=== PATIENT | female | born 2000 | race Caucasian/White ===

== ENCOUNTER 2021-12-09 20:55 | Emergency (ER) | payer MEDICAID ==
--- NOTE | 2021-12-09 21:17 | ERPHSYRPT ---
- History of Present Illness Time Seen by Provider: 12/09/21 21:15 Source: patient Exam Limitations: no limitations Patient Subjective Stated Complaint: pt states she has had tooth pain on left side of mouth in molar Triage Nursing Assessment: pt is alert and oriented, pt vitals are within normal limits, no fever at this time, rates pain in left side of mouth at 7/10. pt has lost a peice of the molar on left side of moth, gum surrounding tooth is red and swollen. Physician History: The patient is a 21-year-old female who reported is otherwise healthy presents with a chief complaint of a toothache. Onset reportedly was 2 weeks ago. She apparently complained that she may have cracked a tooth and then shortly afterwards started to experience pain that is constant nonradiating mild. She has been taking ibuprofen and Tylenol for the pain She denies any trismus, fever, chills, facial swelling, difficulty swallowing or any changes in her voice. She does not follow with a dentist currently. She apparently had caps or crowns put on her teeth, specifically to lower teeth years ago at Allergies/Adverse Reactions: codeine Allergy (Verified 09/13/21 12:31) Shortness of Breath SOB Hx Tetanus, Diphtheria Vaccination/Date Given: Yes Hx Influenza Vaccination/Date Given: No Hx Pneumococcal Vaccination/Date Given: No Travel Risk - International Travel Have you traveled outside of the country in past 3 weeks: No - Coronavirus Screening Are you exhibiting any of the following symptoms?: No Close contact with a COVID-19 positive Pt in past 14-21 Days: No - Vaccine Status Have you recieved a Covid-19 vaccination: No - Review of Systems Constitutional: No Fever, No Chills Ears, Nose, & Throat: Other (Toothache), No Ear Pain, No Mouth Pain, No Loose Teeth, No Painful Swallowing Cardiac: No Symptoms Abdominal/Gastrointestinal: No Symptoms Musculoskeletal: No Symptoms Skin: No Symptoms Neurological: No Headache Psychological: No Symptoms All Other Systems: Reviewed and Negative - Past Medical History Pertinent Past Medical History: No Neurological History: No Pertinent History ENT History: No Pertinent History Cardiac History: No Pertinent History Respiratory History: No Pertinent History Endocrine Medical History: No Pertinent History GI Medical History: No Pertinent History History: No Pertinent History Psycho-Social History: Depression Female Reproductive Disorders: Other - Past Surgical History Past Surgical History: Yes Neuro Surgical History: No Pertinent History Cardiac: No Pertinent History Respiratory: No Pertinent History Gastrointestinal: No Pertinent History Genitourinary: No Pertinent History Musculoskeletal: No Pertinent History Female Surgical History: No Pertinent History Other Surgical History: TONSILECTOMY - Social History Smoking Status: Current every day smoker How long have you smoked: YR Exposure to second hand smoke: Yes Drug Use: marijuana Patient Lives Alone: No - Female History Hx Last Menstrual Period: 11/07/21 Hx Now: (unknown) - Nursing Vital Signs Nursing Vital Signs: Initial Vital Signs Respiratory Rate 18 12/09/21 20:59 Blood Pressure 140/94 12/09/21 20:59 O2 Sat by Pulse Oximetry 98 12/09/21 20:59 Pain Scale Pain Intensity 5 - Physical Exam General Appearance: no apparent distress, alert Eye Exam: PERRL/EOMI, No scleral icterus ENT Exam: TMs normal, pharynx normal, airway intact, No nasal congestion, No p haryngeal erythema, No tonsillar exudate, No trismus, No muffled/hoarse voice Neck Exam: normal inspection, non-tender, supple, trachea midline Respiratory Exam: normal breath sounds, lungs clear, no respiratory distress Cardiovascular/Chest Exam: normal heart sounds, regular rate/rhythm, normal peripheral pulses, No murmur, No edema Neurologic Exam: alert, oriented x 3, cooperative Skin Exam: normal color, warm, dry Lymphatic: other SpO2: 98 Comments: The patient in no obvious periodontal swelling or abscess. The patient had tenderness upon palpation/tapping #13. For the most part, the tooth appear to be intact. These sublingual floor was supple there is no evidence of Dangelo's. There is no evidence of SHOULDER BONER. There is no evidence of facial swelling/cellulitis. - Course Nursing assessment & vital signs reviewed: Yes Ordered Tests: Active Orders 24 hr Category Date Time Status Re-Check Vital Signs STAT Care 12/09/21 21:53 Completed Medication Summary Discontinued Medications Generic Name Dose Route Start Last Admin Trade Name Courtney PRN Reason Stop Dose Admin Ibuprofen 400 mg 12/09/21 21:46 12/09/21 22:02 Ibuprofen 400 Mg Tablet PO 12/09/21 21:47 400 mg STAT ONE Administration Ibuprofen Confirm 12/09/21 21:52 Ibuprofen 400 Mg Tablet Administered 12/09/21 21:53 Dose 400 mg .ROUTE .STK-MED ONE Penicillin V Potassium 500 mg 12/09/21 21:46 12/09/21 22:02 Penicillin V Potassium 250 Mg Tablet PO 12/09/21 21:47 500 mg STAT ONE Administration Penicillin V Potassium Confirm 12/09/21 21:52 Penicillin V Potassium 250 Mg Tablet Administered 12/09/21 21:53 Dose 500 mg .ROUTE .STK-MED ONE - Progress Progress: unchanged Progress Note: 12/09/21 22:00 I was unable to pull up the patient on inspect. I suspect the patient may have given us the wrong demographics and registration asked for identification from the patient to confirm her ID however she did not have any formal identification on her person. Because of this, I will not prescribe any controlled substances and recommend that she take Tylenol in addition to ibuprofen as needed for pain. 12/10/21 03:52 Nontoxic in appearance. The patient presents with a 2 think he may be suffering from pulpitis or sensitivity given she reportedly "cracked" her tooth. It certainly possible there could be a periapical abscess as well. I will prescribe penicillin V and instructed to take Tylenol as well as ibuprofen as needed for pain. She was given a dental referral handout as well and instructed to establish care with a dentist for further evaluation and management. Counseled pt/family regarding: diagnosis, need for follow-up - Departure Departure Disposition: Home Clinical Impression: Pain, dental Condition: Stable Critical Care Time: No Referrals: DOCTOR,NO FAMILY [Primary Care Provider] - Follow up/PCP as directed Prescriptions: Penicillin V Potassium 500 mg PO QID 7 Days #28 tablet Penicillin V Potassium 500 mg PO QID #28 tablet
[2021-12-09] MEDS ORDERED: PENICILLIN V POTASSIUM PO ONE (21:46)
[2021-12-09] MEDS ORDERED: MOTRIN 400 MG PO ONE (21:46)
[2021-12-09] MEDS ORDERED: MOTRIN 400 MG ONE (21:52)
[2021-12-09] MEDS ORDERED: PENICILLIN V POTASSIUM ONE (21:52)
[2021-12-09 22:22] VITALS: BP 139/98; PULSE 97
[2021-12-10 03:52] VITALS: O2SAT 98
== END 2021-12-09 22:23 | disposition home or self-care (01) ==
LOC: ED 20:55
DX: K08.89 Other specified disorders of teeth and supporting structures (principal); Z72.0 Tobacco use; Z28.310 Unvaccinated for COVID-19
CPT/HCPCS: 99282; A9270-GY

== ENCOUNTER 2022-01-08 15:37 | Emergency (ER) | payer MEDICAID ==
[2022-01-08 16:03] VITALS: BP 120/84; PULSE 109; O2SAT 98
--- NOTE | 2022-01-08 16:29 | ERPHSYRPT ---
- History of Present Illness Source: patient Exam Limitations: no limitations Patient Subjective Stated Complaint: pt c/o of an abcess in her mouth on the top left side, pt continues to get antibiotics and doesn't go to the dentist to get it fixed per her mother Triage Nursing Assessment: Pt brought to the ER by her parents, vitals wnl, rates pain as 10/10, appears to be in significant pain, no other issues at this time Physician History: 21 yo wf w dental pain x 1wk. Pt has visited the ER in the past for the same condition but did not f/u w a dentist. She has moderate pain and states mild edema of gums. Timing/Duration: gradual onset ENT Location: dental Prearrival Treatment: over the counter meds Modifying Factors: Improves With: other (Chewing). Worsens With: activity, nothing, albuterol inhaler, albuterol nebulizer, coughing, deep breath, exertion, lying down, oxygen, rest Associated Symptoms: facial pain/swelling, jaw pain, tooth pain, No ear pain (R), No ear pain (L), No cough, No fever, No chills, No change in hearing, No dizziness, No drooling, No ear drainage, No headache, No hearing loss, No m alaise, No motion sickness, No nasal congestion/drainage, No epistaxis, No nasal foreign body, No neck pain, No poor fluid intake, No poor solids intake, No ringing of ears, No swollen glands, No sinus infection, No sore throat, No difficulty swallowing, No voice change Allergies/Adverse Reactions: codeine Allergy (Verified 01/08/22 16:03) Shortness of Breath SOB Hx Tetanus, Diphtheria Vaccination/Date Given: Yes Hx Influenza Vaccination/Date Given: No Hx Pneumococcal Vaccination/Date Given: No Travel Risk - International Travel Have you traveled outside of the country in past 3 weeks: No - Coronavirus Screening Are you exhibiting any of the following symptoms?: No Close contact with a COVID-19 positive Pt in past 14-21 Days: No - Vaccine Status Have you recieved a Covid-19 vaccination: No - Review of Systems Constitutional: No Symptoms Eyes: No Symptoms Ears, Nose, & Throat: No Symptoms, Mouth Pain Respiratory: No Symptoms Cardiac: No Symptoms Abdominal/Gastrointestinal: No Symptoms Genitourinary Symptoms: No Symptoms Musculoskeletal: No Symptoms Skin: No Symptoms Neurological: No Symptoms Psychological: No Symptoms Endocrine: No Symptoms Hematologic/Lymphatic: No Symptoms Immunological/Allergic: No Symptoms - Past Medical History Pertinent Past Medical History: Yes Neurological History: No Pertinent History ENT History: No Pertinent History Cardiac History: No Pertinent History Respiratory History: No Pertinent History Endocrine Medical History: No Pertinent History GI Medical History: No Pertinent History History: No Pertinent History Psycho-Social History: Depression Female Reproductive Disorders: Other - Past Surgical History Past Surgical History: Yes Neuro Surgical History: No Pertinent History Cardiac: No Pertinent History Respiratory: No Pertinent History Gastrointestinal: No Pertinent History Genitourinary: No Pertinent History Musculoskeletal: No Pertinent History Female Surgical History: No Pertinent History Other Surgical History: TONSILECTOMY - Social History Smoking Status: Current every day smoker How long have you smoked: YR Exposure to second hand smoke: Yes Drug Use: marijuana Patient Lives Alone: No Significant Family History: no pertinent family hx - Female History Hx Now: No (unsure) - Nursing Vital Signs Nursing Vital Signs: Initial Vital Signs Temperature 97.0 F 01/08/22 15:55 Pulse Rate 109 H 01/08/22 15:55 Blood Pressure 120/84 01/08/22 15:55 O2 Sat by Pulse Oximetry 98 01/08/22 15:55 Pain Scale Pain Intensity 10 Mildly tachy - Physical Exam General Appearance: no apparent distress Eye Exam: bilateral eye: normal inspection, PERRL, EOMI Ear Exam: bilateral ear: auricle normal, canal normal, TM normal Nasal Exam: normal inspection Throat Exam: dental tenderness (L superior 2nd molar TTP), No excessive drooling, No mandibular swelling, No maxillary swelling, No moist mucus membranes, No pharynx swelling, No pharynx tenderness, No tongue swollen, No tonsillar exudate, No tonsillar swelling, No trismus, No uvula swelling, No voice changes Neck Exam: normal inspection, non-tender, supple, full range of motion, trachea midline, No JVD Cardiovascular/Respiratory Exam: normal breath sounds, regular rate/rhythm, heart sounds normal Abdominal Exam: non-tender, soft Neurologic Exam: alert, oriented x 3, cooperative, 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, normal mood/affect, nml cerebellar function, nml station & gait, sensation nml Skin Exam: normal color SpO2 Interpretation: normal SpO2: 98 O2 Delivery: Room Air - Course Nursing assessment & vital signs reviewed: Yes - Progress Progress Note: 01/08/22 16:28 Pt refused IM Toradol due to fear of injections Counseled pt/family regarding: diagnosis, need for follow-up - Departure Departure Disposition: Home Clinical Impression: Chronic dental pain Condition: Stable Critical Care Time: No Referrals: DOCTOR,NO FAMILY [Primary Care Provider] - Follow up/PCP as directed Instructions: Tooth Abscess (DC), Dental Pain (DC), Dental Pain Additional Instructions: Dentist KERON Prescriptions: Etodolac 400 mg [Lodine 400 mg] 400 mg PO TID PRN PRN #15 tablet PRN Reason: Pain Penicillin V Potassium 500 mg PO TID 7 Days #21 tablet
== END 2022-01-08 16:44 | disposition home or self-care (01) ==
LOC: ED 15:37
DX: K08.89 Other specified disorders of teeth and supporting structures (principal); G89.29 Other chronic pain; Z72.0 Tobacco use; Z28.310 Unvaccinated for COVID-19
CPT/HCPCS: 99281

== ENCOUNTER 2022-01-25 00:32 | Emergency (ER) | payer MEDICAID ==
[2022-01-25 00:52] VITALS: BP 146/89; PULSE 112; O2SAT 97
[2022-01-25] MEDS ORDERED: TORAdol 30 mg Injection IM ONE (00:57)
[2022-01-25] MEDS ORDERED: TYLENOL 325 MG PO ONE (00:59)
[2022-01-25] MEDS ORDERED: Augmentin 875-125 Tablet PO ONE (01:00)
[2022-01-25] MEDS ORDERED: TORAdol 30 mg Injection ONE (01:03)
[2022-01-25] MEDS ORDERED: Augmentin 875-125 Tablet ONE (01:03)
[2022-01-25] MEDS ORDERED: TYLENOL 325 MG ONE (01:03)
--- NOTE | 2022-01-25 01:07 | ERPHSYRPT ---
- History of Present Illness Time Seen by Provider: 01/25/22 01:04 Exam Limitations: no limitations Patient Subjective Stated Complaint: pt states "I am supposed to go to the dentist tomorrow to possible get my teeth pulled cause I have a bad tooth bu I cannot stand the pain anymore." Triage Nursing Assessment: pt ambulatory to bed by self, pt alert and oriented x3, pt here in ED with mother, pt crying in triage, pt c/o L lower and upper dental pain, pt has some decaying teeth on the L lower side, pt has a dentist appointment tomorrow in [place], pt last taken 400 mg of motrin at 2100 Physician History: Is a 21-year-old female presents to our ED with 2 days of dental pain. Patient currently has a dental appointment scheduled for tomorrow but is here because of the pain was unbearable. Patient had been taking 400 mg of ibuprofen for pain control. Of note this is underdosed based on her body weight. Patient states the pain radiates up to her ear. No fever. No dizziness. No hard of hearing. Patient complains of dental pain particularly at tooth #14 and tooth #18. Pain described as an ache that tends to radiate towards her ear. No trauma. No fever. Symptoms are moderate in intensity. Mastication reproduces symptoms. No difficulty swallowing. No oral swelling. No cervical lymphadenopathy. Patient is otherwise healthy. She voices no other complaints or concerns at this time. Timing/Duration: yesterday Severity: moderate Modifying Factors: Improves With: other (400 mg of ibuprofen was not improving patient's symptoms. Pain worsens with mastication percussion to teeth.) Associated Symptoms: denies symptoms Allergies/Adverse Reactions: No Known Drug Allergies Allergy (Unverified 01/25/22 00:44) Hx Tetanus, Diphtheria Vaccination/Date Given: No Hx Influenza Vaccination/Date Given: Yes Hx Pneumococcal Vaccination/Date Given: No Immunizations Up to Date: Yes Travel Risk - International Travel Have you traveled outside of the country in past 3 weeks: No - Coronavirus Screening Are you exhibiting any of the following symptoms?: No Close contact with a COVID-19 positive Pt in past 14-21 Days: No - Vaccine Status Have you recieved a Covid-19 vaccination: No - Review of Systems Constitutional: No Symptoms, No Fever, No Chills Eyes: No Symptoms Ears, Nose, & Throat: No Symptoms Respiratory: No Symptoms, No Cough, No Dyspnea Cardiac: No Symptoms, No Chest Pain, No Edema, No Syncope Abdominal/Gastrointestinal: No Symptoms, No Abdominal Pain, No Nausea, No Vomiting, No Diarrhea Genitourinary Symptoms: No Symptoms, No Dysuria Musculoskeletal: No Symptoms, No Back Pain, No Neck Pain Skin: No Symptoms, No Rash Neurological: No Symptoms, No Dizziness, No Focal Weakness, No Sensory Changes Psychological: No Symptoms Endocrine: No Symptoms Hematologic/Lymphatic: No Symptoms Immunological/Allergic: No Symptoms All Other Systems: Reviewed and Negative - Past Medical History Pertinent Past Medical History: Yes Neurological History: No Pertinent History ENT History: No Pertinent History Cardiac History: No Pertinent History Respiratory History: No Pertinent History Endocrine Medical History: No Pertinent History Musculoskeletal History: No Pertinent History GI Medical History: No Pertinent History History: No Pertinent History Psycho-Social History: Depression Female Reproductive Disorders: Other - Past Surgical History Past Surgical History: Yes Neuro Surgical History: No Pertinent History Cardiac: No Pertinent History Respiratory: No Pertinent History Gastrointestinal: No Pertinent History Genitourinary: No Pertinent History Musculoskeletal: No Pertinent History Female Surgical History: No Pertinent History Other Surgical History: TONSILECTOMY - Social History Smoking Status: Former smoker How long have you smoked: YR Exposure to second hand smoke: Yes Drug Use: marijuana Patient Lives Alone: No Significant Family History: no pertinent family hx - Female History Hx Last Menstrual Period: 01/18/2022 Hx Now: No - Nursing Vital Signs Nursing Vital Signs: Initial Vital Signs Temperature 98.9 F 01/25/22 00:44 Pulse Rate 112 H 01/25/22 00:44 Respiratory Rate 18 01/25/22 00:44 Blood Pressure 146/89 01/25/22 00:44 O2 Sat by Pulse Oximetry 97 01/25/22 00:44 Pain Scale Pain Intensity 10 - Physical Exam General Appearance: no apparent distress, alert Eye Exam: PERRL/EOMI, eyes nml inspection Ears, Nose, Throat Exam: normal ENT inspection, TMs normal, pharynx normal, moist mucous membranes, other (Left ear otitis media tooth 14 is tender to percussion. Tooth 18 is carious. Early dental abscess) Neck Exam: normal inspection, non-tender, supple, full range of motion Respiratory Exam: normal breath sounds, lungs clear, airway intact, No respiratory distress Cardiovascular Exam: regular rate/rhythm, normal heart sounds, normal peripheral pulses Gastrointestinal/Abdomen Exam: soft, normal bowel sounds, No tenderness, No mass Back Exam: normal inspection, normal range of motion, No CVA tenderness, No vertebral tenderness Extremity Exam: normal inspection, normal range of motion, pelvis stable Neurologic Exam: alert, oriented x 3, cooperative, normal mood/affect, nml cerebellar function, nml station & gait, sensation nml, No motor deficits Skin Exam: normal color, warm, dry, No rash Lymphatic Exam: No adenopathy SpO2 Interpretation: normal SpO2: 97 O2 Delivery: Room Air - Course Nursing assessment & vital signs reviewed: Yes Ordered Tests: Medication Summary Discontinued Medications Generic Name Dose Route Start Last Admin Trade Name Carlos Albertoq PRN Reason Stop Dose Admin Acetaminophen 975 mg 01/25/22 00:59 Acetaminophen 325 Mg Tablet PO 01/25/22 01:00 STAT ONE Amoxicillin/Clavulanate Potassium 875 mg 01/25/22 01:00 Amox Tr/Potassium Clavulanate 875 Mg Tablet PO 01/25/22 01:01 STAT ONE Ketorolac Tromethamine 30 mg 01/25/22 00:57 Ketorolac Tromethamine 30 Mg/Ml Inj IM 01/25/22 00:58 STAT ONE - Progress Progress: improved Progress Note: 01/25/22 01:08 Patient reassessed. Pain improved. Vital stable. Patient received a dose of Augmentin in our ED. A prescription for Augmentin was forwarded to patient's pharmacy. Patient also received a prescription for Toradol. Patient will maintain her dental appointment tomorrow. No indication for further work-up at this time. Will discharge home. Patient agrees to follow-up with a dentist as planned. She voices no other complaints or concerns at this time. Of note patient denied the possibility of . Patient declined the need for a urine . \\Portions of this note were created with voice recognition technology. There may be grammatical, spelling, punctuation or sound alike errors 01/25/22 01:11 Counseled pt/family regarding: diagnosis, need for follow-up - Departure Departure Disposition: Home Clinical Impression: Pain, dental, Otitis media, Carious teeth Condition: Stable Critical Care Time: No Instructions: Dental Pain (DC), Tooth Decay, Adult (DC) Additional Instructions: Discharge/Care Plan MAGGIE CLAY was seen on 01/25/22 in the Emergency Room. The patient was counseled regarding Diagnosis,Lab results, Imaging studies, need for follow up and when to return to the Emergency Room. Prescriptions given: Discharge Note I have spoken with the patient and/or caregivers. I have explained the patient's condition, diagnosis and treatment plan based on the information available to me at this time. I have answered the patient's and/or caregiver's questions and addressed any concerns. The patient and/or caregivers have as good understanding of the patient's diagnosis, condition and treatment plan as can be expected at this point. The vital signs have been stable. The patient's condition is stable and appropriate for discharge from the emergency department. The patient will pursue further outpatient evaluation with the primary care physician or other designated or consulting physician as outlined in the discharge instructions. The patient and/or caregivers are agreeable to this plan of care and follow-up instructions have been explained in detail. The patient and/or caregivers have received these instruction. The patient/and or caregivers are aware that any significant change in condition or worsening of symptoms should prompt an immediate return to this or the closest emergency department or call 911. Prescriptions: Amox Tr/Potass Clav. 875 mg [Augmentin 875-125 Tablet] 875 mg PO BID 7 Days #14 tablet Ketorolac Trometh 10 mg Tab [TORAdol 10 MG TABLET] 10 mg PO TID 5 Days #15 tablet
== END 2022-01-25 01:23 | disposition home or self-care (01) ==
LOC: ED 00:32
DX: K02.9 Dental caries, unspecified (principal); K08.89 Other specified disorders of teeth and supporting structures; H66.92 Otitis media, unspecified, left ear; Z28.310 Unvaccinated for COVID-19
CPT/HCPCS: 96372; 99283; J1885; A9270-GY

== ENCOUNTER 2022-02-12 18:06 | Emergency (ER) | payer MEDICAID, OTHER ==
--- NOTE | 2022-02-12 18:09 | ERPHSYRPT ---
- History of Present Illness Time Seen by Provider: 02/12/22 18:09 Source: patient Exam Limitations: no limitations Physician History: This is a 21-year-old white female patient who has had a tooth ache in the left upper molar region for a month. She states that the pain worsened this morning. She did not come in this morning because she did not have transportation to the hospital per her family member. Patient took Tylenol approximately 2 hours ago. The family member stated that she has been using ibuprofen but that has not helped. However, the patient did states she has not taken any ibuprofen today. Patient states that she just received her health insurance card and that she is going to see a dentist tomorrow. Timing/Duration: gradual onset, this morning (Worsened this morning) Severity: moderate ENT Location: dental (Left upper molars) Prearrival Treatment: over the counter meds Modifying Factors: Improves With: nothing Associated Symptoms: tooth pain (Left upper molars) Allergies/Adverse Reactions: No Known Drug Allergies Allergy (Verified 02/12/22 18:26) Hx Tetanus, Diphtheria Vaccination/Date Given: No Hx Influenza Vaccination/Date Given: Yes Hx Pneumococcal Vaccination/Date Given: No Travel Risk - International Travel Have you traveled outside of the country in past 3 weeks: No - Coronavirus Screening Are you exhibiting any of the following symptoms?: No Close contact with a COVID-19 positive Pt in past 14-21 Days: No - Vaccine Status Have you recieved a Covid-19 vaccination: No - Review of Systems Constitutional: No Symptoms Eyes: No Symptoms Ears, Nose, & Throat: Other (Dental pain left upper molar) Respiratory: No Symptoms Cardiac: No Symptoms Abdominal/Gastrointestinal: No Symptoms Genitourinary Symptoms: No Symptoms Musculoskeletal: No Symptoms Skin: No Symptoms Neurological: No Symptoms Psychological: No Symptoms Endocrine: No Symptoms Hematologic/Lymphatic: No Symptoms Immunological/Allergic: No Symptoms All Other Systems: Reviewed and Negative - Past Medical History Pertinent Past Medical History: Yes Neurological History: No Pertinent History ENT History: No Pertinent History Cardiac History: No Pertinent History Respiratory History: No Pertinent History Endocrine Medical History: No Pertinent History Musculoskeletal History: No Pertinent History GI Medical History: No Pertinent History History: No Pertinent History Psycho-Social History: Depression Female Reproductive Disorders: Other - Past Surgical History Past Surgical History: Yes Neuro Surgical History: No Pertinent History Cardiac: No Pertinent History Respiratory: No Pertinent History Gastrointestinal: No Pertinent History Genitourinary: No Pertinent History Musculoskeletal: No Pertinent History Female Surgical History: No Pertinent History Other Surgical History: TONSILECTOMY - Social History Smoking Status: Former smoker How long have you smoked: YR Exposure to second hand smoke: Yes Drug Use: marijuana Patient Lives Alone: No Significant Family History: no pertinent family hx - Nursing Vital Signs Nursing Vital Signs: Initial Vital Signs Temperature 97.6 F 02/12/22 18:07 Pulse Rate 90 02/12/22 18:07 Respiratory Rate 22 02/12/22 18:07 O2 Sat by Pulse Oximetry 98 02/12/22 18:07 Pain Scale Pain Intensity 10 - Physical Exam General Appearance: no apparent distress, alert, anxiety Eye Exam: bilateral eye: normal inspection, PERRL, EOMI Ear Exam: bilateral ear: auricle normal, canal normal, TM normal Nasal Exam: normal inspection Throat Exam: normal, pharynx normal, dental tenderness (Left upper molars), moist mucus membranes Neck Exam: normal inspection, non-tender, supple, full range of motion Cardiovascular/Respiratory Exam: chest non-tender, no respiratory distress Abdominal Exam: non-tender Neurologic Exam: alert, oriented x 3, cooperative, 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, normal mood/affect, nml cerebellar function, nml station & gait, sensation nml Skin Exam: normal color, warm, dry SpO2 Interpretation: normal O2 Delivery: Room Air - Course Nursing assessment & vital signs reviewed: Yes Ordered Tests: Medication Summary Discontinued Medications Generic Name Dose Route Start Last Admin Trade Name Carlos Albertoq PRN Reason Stop Dose Admin Amoxicillin 500 mg 02/12/22 18:46 Amoxicillin Trihydrate 500 Mg Capsule PO 02/12/22 18:47 STAT ONE Ibuprofen 600 mg 02/12/22 18:45 Ibuprofen 600 Mg Tablet PO 02/12/22 18:46 STAT ONE Oxycodone/Acetaminophen 1 tab 02/12/22 18:45 Oxycodone Hcl/Apap 5 Mg/325 Mg Tablet PO 02/12/22 18:46 STAT STA - Progress Progress: improved, pain not gone completely Counseled pt/family regarding: diagnosis, need for follow-up - Departure Departure Disposition: Home Clinical Impression: Pain due to dental caries Condition: Stable Critical Care Time: No Referrals: DOCTOR,NO FAMILY [Primary Care Provider] - Follow up/PCP as directed Additional Instructions: Alternate 650 mg of Tylenol orally with ibuprofen 600 mg with food every 4 hours. Follow-up with a dentist tomorrow, 02/13/2022, to make an appointment for further evaluation and management as well as definitive care of any dental conditions causing your dental pain. Take your medication as prescribed Prescriptions: Amoxicillin 500 mg Cap [Amoxil 500 mg] 500 mg PO TID #30 cap
[2022-02-12 18:38] VITALS: PULSE 90; O2SAT 98
[2022-02-12] MEDS ORDERED: PERCOCET TABLET 5/325MG PO STA (18:45)
[2022-02-12] MEDS ORDERED: MOTRIN 600 MG PO ONE (18:45)
[2022-02-12] MEDS ORDERED: AMOXIL 500 MG PO ONE (18:46)
[2022-02-12] MEDS ORDERED: MOTRIN 600 MG ONE (18:55)
[2022-02-12] MEDS ORDERED: AMOXIL 500 MG ONE (18:55)
[2022-02-12] MEDS ORDERED: PERCOCET TABLET 5/325MG ONE (18:55)
== END 2022-02-12 19:05 | disposition home or self-care (01) ==
LOC: ED 18:06
DX: K02.9 Dental caries, unspecified (principal); K08.89 Other specified disorders of teeth and supporting structures; Z28.310 Unvaccinated for COVID-19
CPT/HCPCS: 99282; A9270-GY

== ENCOUNTER 2022-12-13 06:10 | Emergency (ER) | payer OTHER ==
[2022-12-13] MEDS ORDERED: Augmentin 875-125 Tablet PO ONE (06:20)
[2022-12-13] MEDS ORDERED: TYLENOL 325 MG PO ONE (06:21)
[2022-12-13 06:24] VITALS: BP 126/97
--- NOTE | 2022-12-13 06:25 | ERPHSYRPT ---
- History of Present Illness Time Seen by Provider: 12/13/22 06:29 Source: patient Exam Limitations: no limitations Physician History: Patient is a 22-year-old female presents to our ED for evaluation of dental pain. Patient is experiencing pain at her right posterior molar tooth #32. Pain started 2 days ago. Pain progressively worse. Patient feels pain shoot into her ear. Patient tolerating oral secretions. No difficulty swallowing. Symptoms are constant. Symptoms are moderate in intensity. Mastication worsens symptoms. Pain improved with rest. Significant other at bedside. Patient is otherwise healthy. She voices no other complaints or concerns at this time. Portions of this note were created with voice recognition technology. There may be grammatical, spelling, punctuation or sound alike errors Timing/Duration: day(s) (2 days) Severity: moderate Modifying Factors: Improves With: other (Mastication and percussion to the involved tooth reproduce pain) Associated Symptoms: denies symptoms Allergies/Adverse Reactions: No Known Drug Allergies Allergy (Verified 12/13/22 06:16) Hx Tetanus, Diphtheria Vaccination/Date Given: No Hx Influenza Vaccination/Date Given: Yes Hx Pneumococcal Vaccination/Date Given: No Travel Risk - Vaccine Status Have you recieved a Covid-19 vaccination: No - Review of Systems Constitutional: No Symptoms, No Fever, No Chills Eyes: No Symptoms Ears, Nose, & Throat: No Symptoms Respiratory: No Symptoms, No Cough, No Dyspnea Cardiac: No Symptoms, No Chest Pain, No Edema, No Syncope Abdominal/Gastrointestinal: No Symptoms, No Abdominal Pain, No Nausea, No Vomiting, No Diarrhea Genitourinary Symptoms: No Symptoms, No Dysuria Musculoskeletal: No Symptoms, No Back Pain, No Neck Pain Skin: No Symptoms, No Rash Neurological: No Symptoms, No Dizziness, No Focal Weakness, No Sensory Changes Psychological: No Symptoms Endocrine: No Symptoms Hematologic/Lymphatic: No Symptoms Immunological/Allergic: No Symptoms All Other Systems: Reviewed and Negative - Past Medical History Pertinent Past Medical History: Yes Neurological History: No Pertinent History ENT History: No Pertinent History Cardiac History: No Pertinent History Respiratory History: No Pertinent History Endocrine Medical History: No Pertinent History Musculoskeletal History: No Pertinent History GI Medical History: No Pertinent History History: No Pertinent History Psycho-Social History: Depression Female Reproductive Disorders: Other - Past Surgical History Past Surgical History: Yes Neuro Surgical History: No Pertinent History Cardiac: No Pertinent History Respiratory: No Pertinent History Gastrointestinal: No Pertinent History Genitourinary: No Pertinent History Musculoskeletal: No Pertinent History Female Surgical History: No Pertinent History Other Surgical History: TONSILECTOMY - Social History Smoking Status: Former smoker How long have you smoked: YR Exposure to second hand smoke: Yes Drug Use: marijuana Patient Lives Alone: No Significant Family History: no pertinent family hx - Nursing Vital Signs Nursing Vital Signs: Initial Vital Signs Temperature 97.4 F 12/13/22 06:16 Pulse Rate 107 H 12/13/22 06:16 Respiratory Rate 18 12/13/22 06:16 Blood Pressure 126/97 12/13/22 06:16 O2 Sat by Pulse Oximetry 100 12/13/22 06:16 Pain Scale Pain Intensity 8 - Physical Exam General Appearance: no apparent distress, alert Eye Exam: PERRL/EOMI, eyes nml inspection Ears, Nose, Throat Exam: normal ENT inspection, TMs normal, pharynx normal, moist mucous membranes, other (Tooth #32 appears to have an adjacent abscess. Oral exam otherwise negative. Uvula midline. No sublingual masses. No Dangelo's.) Neck Exam: normal inspection, non-tender, supple, full range of motion Respiratory Exam: normal breath sounds, lungs clear, airway intact, No respiratory distress Cardiovascular Exam: regular rate/rhythm, normal heart sounds, normal peripheral pulses Gastrointestinal/Abdomen Exam: soft, normal bowel sounds, No tenderness, No mass Back Exam: normal inspection, normal range of motion, No CVA tenderness, No vertebral tenderness Extremity Exam: normal inspection, normal range of motion, pelvis stable Neurologic Exam: alert, oriented x 3, cooperative, normal mood/affect, nml cerebellar function, nml station & gait, sensation nml, No motor deficits Skin Exam: normal color, warm, dry, No rash Lymphatic Exam: No adenopathy SpO2 Interpretation: normal SpO2: 100 O2 Delivery: Room Air - Course Nursing assessment & vital signs reviewed: Yes Ordered Tests: Medication Summary Discontinued Medications Generic Name Dose Route Start Last Admin Trade Name Freq PRN Reason Stop Dose Admin Acetaminophen 975 mg 12/13/22 06:21 Acetaminophen 325 Mg Tablet PO 12/13/22 06:22 STAT ONE Amoxicillin/Clavulanate Potassium 875 mg 12/13/22 06:20 Amox Tr/Potassium Clavulanate 875 Mg Tablet PO 12/13/22 06:21 STAT ONE - Progress Progress: improved Progress Note: Patient is a 22-year-old female presents to our ED for evaluation of dental pain. Dental pain started 2 days ago. Pain described as an ache that is localized. No radiation. Physical exam reveals a dental abscess adjacent to tooth #32. Percussion to this area reproduces symptoms. Patient received a dose of Augmentin in our ED. Patient also received a dose of Tylenol for pain control. Patient declined Toradol. Patient understands importance of follow-up with her dentist. Patient agrees to follow-up with a dentist within 48 hours for reevaluation. She voices no other complaints or concerns at this time. Portions of this note were created with voice recognition technology. There may be grammatical, spelling, punctuation or sound alike errors Complexity of problem addressed is low acute uncomplicated No critical care time Complex of data reviewed and analyzed is none. No specialized testing ordered. Diagnosis made based on history and physical exam. Risk of complication and or risk morbidity/mortality of patient management is moderate. A prescription for Augmentin was forwarded to patient's pharmacy. Patient will take [id number]-ocptaoy analgesics as needed. We will discharge home. Plan of care established for shared decision making. Diagnosis is dental pain and dental abscess. Time spent to discharge patient approximately 15 minutes. Plan of care established for shared decision making. No social determinants of health present to impede follow-up. Patient agrees to follow-up with her dentist within 48 hours she voices no other complaints or concerns at this time. Portions of this note were created with voice recognition technology. There may be grammatical, spelling, punctuation or sound alike errors 12/13/22 06:32 Counseled pt/family regarding: diagnosis, need for follow-up - Departure Departure Disposition: Home Clinical Impression: Pain, dental, Dental abscess Condition: Stable Critical Care Time: No Referrals: DOCTOR,NO FAMILY [Primary Care Provider] - Follow up/PCP as directed LIZ JOSEPH MD [ACTIVE STAFF] - Follow up/PCP as directed Additional Instructions: Discharge/Care Plan NIKIA CLAYIL MARKY was seen on 12/13/22 in the Emergency Room. The patient was counseled regarding Diagnosis,Lab results, Imaging studies, need for follow up and when to return to the Emergency Room. Prescriptions given: Discharge Note I have spoken with the patient and/or caregivers. I have explained the patient's condition, diagnosis and treatment plan based on the information available to me at this time. I have answered the patient's and/or caregiver's questions and addressed any concerns. The patient and/or caregivers have as good understanding of the patient's diagnosis, condition and treatment plan as can be expected at this point. The vital signs have been stable. The patient's condition is stable and appropriate for discharge from the emergency department. The patient will pursue further outpatient evaluation with the primary care physician or other designated or consulting physician as outlined in the discharge instructions. The patient and/or caregivers are agreeable to this plan of care and follow-up instructions have been explained in detail. The patient and/or caregivers have received these instruction. The patient/and or caregivers are aware that any significant change in condition or worsening of symptoms should prompt an immediate return to this or the closest emergency department or call 911. Prescriptions: Amox Tr/Potass Clav. 875 mg [Augmentin 875-125 Tablet] 875 mg PO BID 7 Days #14 tablet
[2022-12-13] MEDS ORDERED: Augmentin 875-125 Tablet ONE (06:31)
[2022-12-13] MEDS ORDERED: TYLENOL 325 MG ONE (06:31)
[2022-12-13 07:18] VITALS: PULSE 66; O2SAT 98
== END 2022-12-13 07:18 | disposition home or self-care (01) ==
LOC: ED 06:10
DX: K04.7 Periapical abscess without sinus (principal); K08.89 Other specified disorders of teeth and supporting structures
CPT/HCPCS: 99282; A9270-GY

== ENCOUNTER 2023-05-15 15:59 | Emergency (ER) | payer OTHER ==
[2023-05-15 16:11] VITALS: RESP 20; TEMP 97
[2023-05-15] MEDS ORDERED: Zofran 4 MG/2 ML VIAL IV ONE (16:27)
[2023-05-15] MEDS ORDERED: Sodium Chloride 0.9% 1000 ML 1,000 ML IV STA ×2 (16:27→18:19)
--- NOTE | 2023-05-15 16:27 | ERPHSYRPT ---
- History of Present Illness Time Seen by Provider: 05/15/23 16:27 Historian: patient Exam Limitations: no limitations Patient Subjective Stated Complaint: Pt states "I think I have the flu, I have been vomiting today." Triage Nursing Assessment: Pt presented alert and oriented X 3, skin pwd. pt ambulates with an upright steady gait, able to speak in clear full sentences. Pt resting comfortably on the bed. Physician History: This is a 23-year-old white female patient who started having symptoms of cough, body aches, headache, nausea vomiting diarrhea symptoms yesterday. Today the vomiting has been persistently present. She has no known exposure to individuals with with same symptoms. She has no known exposures to individuals with diagnosis of viral illness. Patient is allergic to codeine and takes no medicines chronically. Patient denies chest pain. She denies shortness of breath. Timing/Duration: yesterday Activities at Onset: none Quality: other (No abdominal pain) Severity of Pain-Max: none Severity of Pain-Current: none Modifying Factors: Improves With: vomiting Associated Symptoms: diarrhea, headache, loss of appetite, nausea, vomiting, weakness, No chest pain, No neck pain Previous symptoms: no prior history, no recent treatment Allergies/Adverse Reactions: codeine Allergy (Severe, Verified 05/15/23 16:11) unknown Hx Tetanus, Diphtheria Vaccination/Date Given: No Hx Influenza Vaccination/Date Given: No Hx Pneumococcal Vaccination/Date Given: No Immunizations Up to Date: No Travel Risk - International Travel Have you traveled outside of the country in past 3 weeks: No - Coronavirus Screening Are you exhibiting any of the following symptoms?: Yes Symptoms: Cough: New Onset, Vomiting/Diarrhea, Headaches/Body Aches/Fatigue - Vaccine Status Have you recieved a Covid-19 vaccination: No - Review of Systems Constitutional: No Symptoms Eyes: No Symptoms Ears, Nose, & Throat: No Symptoms Respiratory: No Symptoms Cardiac: No Symptoms Abdominal/Gastrointestinal: Nausea, Vomiting, Diarrhea, Appetite Changes, No Abdominal Pain Genitourinary Symptoms: No Symptoms Musculoskeletal: No Symptoms Skin: No Symptoms Neurological: No Symptoms Psychological: No Symptoms Endocrine: No Symptoms Hematologic/Lymphatic: No Symptoms Immunological/Allergic: No Symptoms All Other Systems: Reviewed and Negative - Past Medical History Pertinent Past Medical History: No Neurological History: No Pertinent History ENT History: No Pertinent History Cardiac History: No Pertinent History Respiratory History: No Pertinent History Endocrine Medical History: No Pertinent History Musculoskeletal History: No Pertinent History GI Medical History: No Pertinent History History: No Pertinent History Psycho-Social History: Depression Female Reproductive Disorders: Other - Past Surgical History Past Surgical History: Yes Neuro Surgical History: No Pertinent History Cardiac: No Pertinent History Respiratory: No Pertinent History Gastrointestinal: No Pertinent History Genitourinary: No Pertinent History Musculoskeletal: No Pertinent History Female Surgical History: No Pertinent History Other Surgical History: TONSILECTOMY - Social History Smoking Status: Former smoker How long have you smoked: YR Exposure to second hand smoke: Yes Drug Use: none, marijuana Patient Lives Alone: No Significant Family History: no pertinent family hx - Female History Hx Last Menstrual Period: 05/15/2023 Hx Now: No - Nursing Vital Signs Nursing Vital Signs: Initial Vital Signs Temperature 97.0 F 05/15/23 16:06 Pulse Rate 96 H 05/15/23 16:06 Respiratory Rate 20 05/15/23 16:06 Blood Pressure 138/93 05/15/23 16:06 O2 Sat by Pulse Oximetry 99 05/15/23 16:06 Pain Scale Pain Intensity 0 - Physical Exam General Appearance: no apparent distress, alert, anxiety Eye Exam: PERRL/EOMI, eyes nml inspection Ears, Nose, Throat Exam: normal ENT inspection, moist mucous membranes Neck Exam: normal inspection, non-tender, supple, full range of motion Respiratory Exam: normal breath sounds, lungs clear, airway intact, No chest tenderness, No respiratory distress Cardiovascular Exam: regular rate/rhythm, normal heart sounds, normal peripheral pulses Gastrointestinal/Abdomen Exam: soft, normal bowel sounds, No tenderness Pelvic Exam: not done Rectal Exam: not done Back Exam: normal inspection, normal range of motion, vertebral tenderness, No CVA tenderness Extremity Exam: normal inspection, normal range of motion, pelvis stable Neurologic Exam: alert, oriented x 3, cooperative, marketing project manager II-XII nml as tested, normal mood/affect, nml cerebellar function, nml station & gait, sensation nml Skin Exam: normal color, warm, dry Lymphatic Exam: adenopathy SpO2 Interpretation: normal SpO2: 99 O2 Delivery: Room Air - Course Nursing assessment & vital signs reviewed: Yes Ordered Tests: Active Orders 24 hr Category Date Time Status IV Insertion STAT Care 05/15/23 16:27 Active BLOOD CULTURE Stat Lab 05/15/23 16:55 Received CBC W DIFF Stat Lab 05/15/23 16:40 Completed CMP Stat Lab 05/15/23 16:40 Completed HCG QUALITATIVE, SERUM Stat Lab 05/15/23 16:40 Completed LIPASE Stat Lab 05/15/23 16:40 Completed MONO SCREEN Stat Lab 05/15/23 16:40 Completed UA W/RFX UR CULTURE Stat Lab 05/15/23 16:40 Completed Medication Summary Discontinued Medications Generic Name Dose Route Start Last Admin Trade Name Courtney PRN Reason Stop Dose Admin Sodium Chloride 1,000 mls @ 999 mls/hr 05/15/23 16:27 05/15/23 17:48 Sodium Chloride 0.9% 1000 Ml IV 05/15/23 17:27 Infused .Q1H1M STA Infusion Sodium Chloride Confirm 05/15/23 16:43 Sodium Chloride 0.9% 1000 Ml Administered 05/15/23 16:44 Dose 1,000 mls @ ud .ROUTE .STK-MED ONE Ondansetron HCl 4 mg 05/15/23 16:27 05/15/23 16:46 Ondansetron Hcl 4 Mg/2 Ml Vial IV 05/15/23 16:28 4 mg STAT ONE Administration Ondansetron HCl Confirm 05/15/23 16:43 Ondansetron Hcl 4 Mg/2 Ml Vial Administered 05/15/23 16:44 Dose 4 mg .ROUTE .STK-MED ONE Lab/Rad Data: Laboratory Result Diagrams 05/15/23 16:40 05/15/23 16:40 Laboratory Results 05/15/23 05/15/23 05/15/23 Range/Units 16:55 16:40 16:40 WBC (4.0-10.5) x10^3/uL RBC (4.1-5.4) x10^6/uL Hgb (12.0-16.0) g/dL Hct (35-47) % MCV (78-100) fL MCH (26-32) pg MCHC (32-36) g/dL RDW (11.5-14.0) % Plt Count (150-450) x10^3/uL MPV (7.5-11.0) fL Gran % (36.0-66.0) % Immature Gran % (Auto) (0.00-0.4) % Nucleat RBC Rel Count (0.00-0.1) % Eos # (Auto) (0-0.5) x10^3/uL Immature Gran # (Auto) (0.00-0.03) x10^3u/L Absolute Lymphs (auto) (1.0-4.6) x10^3/uL Absolute Monos (auto) (0.0-1.3) x10^3/uL Absolute Nucleated RBC (0.00-0.01) x10^3u/L Lymphocytes % (24.0-44.0) % Monocytes % (0.0-12.0) % Eosinophils % (0.00-5.0) % Basophils % (0.0-0.4) % Absolute Granulocytes (1.4-6.9) x10^3/uL Basophils # (0-0.4) x10^3/uL Sodium (137-145) mmol/L Potassium (3.5-5.1) mmol/L Chloride (98-107) mmol/L Carbon Dioxide (22-30) mmol/L Anion Gap (5-15) MEQ/L BUN (7-17) mg/dL Creatinine (0.52-1.04) mg/dL Estimated GFR ML/MIN Glucose (74-106) mg/dL Calcium (8.4-10.2) mg/dL Total Bilirubin (0.2-1.3) mg/dL AST (14-36) U/L ALT (0-35) U/L Alkaline Phosphatase (38-126) U/L Serum Total Protein (6.3-8.2) g/dL Albumin (3.5-5.0) g/dL Lipase (23-300) U/L Serum HCG, Qual NEGATIVE (NEGATIVE) Urine Color Yellow (Yellow) Urine Appearance Clear (Clear) Urine pH 6.5 (4.6-8.0) Ur Specific [place] 1.025 (1.005-1.030) Urine Protein Negative (Negative) Urine Glucose (UA) Negative (Negative) mg/dL Urine Ketones Negative (Negative) Urine Blood Negative (Negative) Urine Nitrite Negative (Negative) Urine Bilirubin Negative (Negative) Urine Urobilinogen 0.2 (0.2) mg/dL Ur Leukocyte Esterase Negative (Negative) U Hyaline Cast (Auto) NONE SEEN (0-2) /LPF Urine Microscopic RBC 0-2 (0-5) /HPF Urine Microscopic WBC 0-2 (0-5) /HPF Ur Epithelial Cells Few (None Seen) /HPF Urine Bacteria None Seen (None Seen) /HPF Urine Culture Reflexed NO (NO) Monoscreen NEGATIVE (NEGATIVE) Influenza Type A Ag NEGATIVE (NEGATIVE) Influenza Type B Ag NEGATIVE (NEGATIVE) RSV (PCR) NEGATIVE (NEGATIVE) SARS-CoV-2 (PCR) NEGATIVE (NEGATIVE) 05/15/23 05/15/23 Range/Units 16:40 16:40 WBC 16.0 H (4.0-10.5) x10^3/uL RBC 4.82 (4.1-5.4) x10^6/uL Hgb 14.2 (12.0-16.0) g/dL Hct 44.1 (35-47) % MCV 91.5 (78-100) fL MCH 29.5 (26-32) pg MCHC 32.2 (32-36) g/dL RDW 12.8 (11.5-14.0) % Plt Count 251 (150-450) x10^3/uL MPV 10.1 (7.5-11.0) fL Gran % 89.8 H (36.0-66.0) % Immature Gran % (Auto) 0.4 (0.00-0.4) % Nucleat RBC Rel Count 0.0 (0.00-0.1) % Eos # (Auto) 0.18 (0-0.5) x10^3/uL Immature Gran # (Auto) 0.07 H (0.00-0.03) x10^3u/L Absolute Lymphs (auto) 0.76 L (1.0-4.6) x10^3/uL Absolute Monos (auto) 0.60 (0.0-1.3) x10^3/uL Absolute Nucleated RBC 0.00 (0.00-0.01) x10^3u/L Lymphocytes % 4.8 L (24.0-44.0) % Monocytes % 3.8 (0.0-12.0) % Eosinophils % 1.1 (0.00-5.0) % Basophils % 0.1 (0.0-0.4) % Absolute Granulocytes 14.37 H (1.4-6.9) x10^3/uL Basophils # 0.02 (0-0.4) x10^3/uL Sodium 138 (137-145) mmol/L Potassium 4.1 (3.5-5.1) mmol/L Chloride 108 H (98-107) mmol/L Carbon Dioxide 25 (22-30) mmol/L Anion Gap 8.7 (5-15) MEQ/L BUN 15 (7-17) mg/dL Creatinine 0.54 (0.52-1.04) mg/dL Estimated GFR 131.8 ML/MIN Glucose 118 H (74-106) mg/dL Calcium 9.0 (8.4-10.2) mg/dL Total Bilirubin 0.60 (0.2-1.3) mg/dL AST 21 (14-36) U/L ALT 15 (0-35) U/L Alkaline Phosphatase 96 (38-126) U/L Serum Total Protein 7.6 (6.3-8.2) g/dL Albumin 4.3 (3.5-5.0) g/dL Lipase 53 (23-300) U/L Serum HCG, Qual (NEGATIVE) Urine Color (Yellow) Urine Appearance (Clear) Urine pH (4.6-8.0) Ur Specific [place] (1.005-1.030) Urine Protein (Negative) Urine Glucose (UA) (Negative) mg/dL Urine Ketones (Negative) Urine Blood (Negative) Urine Nitrite (Negative) Urine Bilirubin (Negative) Urine Urobilinogen (0.2) mg/dL Ur Leukocyte Esterase (Negative) U Hyaline Cast (Auto) (0-2) /LPF Urine Microscopic RBC (0-5) /HPF Urine Microscopic WBC (0-5) /HPF Ur Epithelial Cells (None Seen) /HPF Urine Bacteria (None Seen) /HPF Urine Culture Reflexed (NO) Monoscreen (NEGATIVE) Influenza Type A Ag (NEGATIVE) Influenza Type B Ag (NEGATIVE) RSV (PCR) (NEGATIVE) SARS-CoV-2 (PCR) (NEGATIVE) - Progress Progress: improved Progress Note: 05/15/23 17:37 Pt medical issue of mod complexity. Level of complexity based on review of past medical history, review of medication list, review of drug allergy list, and hpi. Work up includes iv, ns, zofran, cbc, cmp, ua, test, viral swabs, mono test. 05/15/23 18:16 I interpreted the patient's laboratory data results. She does not have any acute, emergent medical issue at this time. Will provide her with a second liter of intravenous normal saline solution. We will then remotely send to her pharmacy a prescription for Zofran and ODT. Patient will follow-up with her primary care provider for further evaluation and management. Counseled pt/family regarding: lab results, diagnosis, need for follow-up Medical Desision Making - Independent Historian Additional History obtained from: Spouse - Diagnostic Testing Diagnostic test were ordered, analyzed, and reviewed by me: Yes - Risk of complications The pt has a mod risk of morbidity or mortality based on: Need for prescription drug management - Departure Departure Disposition: Home Clinical Impression: Vomiting and diarrhea, Flu-like symptoms Condition: Stable Critical Care Time: No Referrals: DOCTOR,NO FAMILY [Primary Care Provider] - Follow up/PCP as directed Additional Instructions: Drink plenty of clear liquids. Use your antinausea medication as prescribed. Use Tylenol and ibuprofen for pain and fever control. Call your primary care provider tomorrow, 05/16/2023 to make arrangements for follow-up appointment in the next 3 to 5 days. Prescriptions: Ondansetron ODT 4 MG [Zofran Odt 4 mg] 4 mg PO Q6H PRN PRN #10 tablet PRN Reason: Vomiting
[2023-05-15] MEDS ORDERED: Zofran 4 MG/2 ML VIAL ONE (16:43)
[2023-05-15] MEDS ORDERED: Sodium Chloride 0.9% 1000 ML 1,000 ML ONE ×2 (16:43→18:27)
[2023-05-15 17:03] LABS: Absolute Neutrophil Ct (ANC) 14.37 x10^3/uL (1.4-6.9); BASOPHIL % 0.1 % (0.0-0.4); Basophil (Absolute #) 0.02 x10^3/uL (0-0.4); Eosinophil % 1.1 % (0.00-5.0); Eosinophil (Absolute #) 0.18 x10^3/uL (0-0.5); Hematocrit 44.1 % (35-47); Hemoglobin 14.2 g/dL (12.0-16.0); IMMATURE GRAN # 0.07 x10^3u/L (0.00-0.03); IMMATURE GRAN % 0.4 % (0.00-0.4); Lymphocyte (Absolute #) 0.76 x10^3/uL (1.0-4.6); Lymphocytes % 4.8 % (24.0-44.0); Mean Cell Volume 91.5 fL (78-100); Mean Corpuscular Hemoglobin 29.5 pg (26-32); Mean Corpuscular Hgb Concent. 32.2 g/dL (32-36); Mean Platelet Volume 10.1 fL (7.5-11.0); Monocytes % 3.8 % (0.0-12.0); Neutrophil % 89.8 % (36.0-66.0); Platelet Count 251 x10^3/uL (150-450); Red Blood Count 4.82 x10^6/uL (4.1-5.4); Red Cell Distribution Width 12.8 % (11.5-14.0)
[2023-05-15 17:11] LABS: Appearance Clear (Clear); Bacteria None Seen /HPF (None Seen); Bilirubin Negative (Negative); Blood Negative (Negative); Epithelial Cells Few /HPF (None Seen); Glucose, Urine Negative (Negative); Hyaline Casts NONE SEEN /LPF (0-2); Ketones Negative (Negative); Leukocyte Esterase Negative (Negative); Nitrite Negative (Negative); Ph 6.5 (4.6-8.0); Protein,Urine Dip Negative (Negative); RBC 0-2 /HPF (0-5); Specific Gravity 1.025 (1.005-1.030); Urobilinogen 0.2 mg/dL (0.2); WBC 0-2 /HPF (0-5)
[2023-05-15 17:19] LABS: ALBUMIN 4.3 g/dL (3.5-5.0); BILIRUBIN,TOTAL 0.6 mg/dL (0.2-1.3); Potassium 4.1 mmol/L (3.5-5.1); Total Protein 7.6 g/dL (6.3-8.2)
[2023-05-15 17:21] LABS: ADD URINE CULTURE? NO (NO)
[2023-05-15 17:29] LABS: ANION GAP 8.7 MEQ/L (5-15); Creatinine 1 0.54 mg/dL (0.52-1.04); EST GLOMERULAR FILTRATION RATE 131.8 ML/MIN
[2023-05-15 17:45] LABS: HCG SERUM TEST NEGATIVE (NEGATIVE)
[2023-05-15 17:47] LABS: INFLUENZA A NEGATIVE (NEGATIVE); INFLUENZA B NEGATIVE (NEGATIVE); RESPIRATORY SYNCTIAL VIRUS NEGATIVE (NEGATIVE); SARS-CoV-2 Xpert Express NEGATIVE (NEGATIVE)
[2023-05-15 18:58] VITALS: O2SAT 100
[2023-05-15 19:41] VITALS: BP 124/85; PULSE 88
== END 2023-05-15 19:42 | disposition home or self-care (01) ==
LOC: ED 15:59
DX: R11.2 Nausea with vomiting, unspecified (principal); R19.7 Diarrhea, unspecified; R05.1 Acute cough; M79.10 Myalgia, unspecified site; R51.9 Headache, unspecified; Z28.310 Unvaccinated for COVID-19
CPT/HCPCS: 0241U; 36000; 36415; 80053; 81001; 83690; 84703; 85025; 86308; 87040; 96360; 96374; 99284; J2405

== ENCOUNTER 2023-12-27 04:18 | Emergency (ER) | payer OTHER ==
[2023-12-27 04:29] VITALS: TEMP 96.7
[2023-12-27] MEDS ORDERED: Sodium Chloride 0.9% 1000 ML 1,000 ML ONE (04:36)
[2023-12-27] MEDS ORDERED: Zofran 4 MG/2 ML VIAL ONE (04:37)
[2023-12-27] MEDS: Zofran 4 MG/2 ML VIAL IV ONE (04:40)
[2023-12-27] MEDS: Sodium Chloride 0.9% 1000 ML 1,000 ML IV SCH (04:40)
[2023-12-27 04:42] VITALS: O2SAT 99
[2023-12-27 04:44] LABS: Hemoglobin 12.9 g/dL (11.2-15.7); Mean Cell Volume 88.6 fL (79.4-94.8); Mean Corpuscular Hemoglobin 29.3 pg (25.6-32.2); Mean Corpuscular Hgb Concent. 33.1 g/dL (32.2-35.5); Mean Platelet Volume 10.2 fL (9.4-12.3); Platelet Count 314 x10^3/uL (182-369); Red Cell Distribution Width 12.8 % (11.7-14.4); White Blood Count 15.1 x10^3/uL (3.98-10.04)
[2023-12-27 04:53] LABS: HCG URINE TEST NEGATIVE (NEGATIVE)
[2023-12-27 04:54] LABS: Appearance Turbid (Clear); Bacteria None Seen /HPF (None Seen); Bilirubin Negative (Negative); Blood Negative (Negative); Epithelial Cells None Seen /HPF (None Seen); Glucose, Urine Negative (Negative); Hyaline Casts NONE SEEN /LPF (0-2); Ketones Negative (Negative); Leukocyte Esterase Negative (Negative); Nitrite Negative (Negative); Protein,Urine Dip Negative (Negative); RBC 0-2 /HPF (0-5); Specific Gravity 1.015 (1.005-1.030); WBC 0-2 /HPF (0-5)
[2023-12-27 04:57] LABS: ADD URINE CULTURE? NO (NO)
[2023-12-27] MEDS ORDERED: TYLENOL 325 MG ONE (04:59)
[2023-12-27 05:00] LABS: ALBUMIN 4.2 g/dL (3.5-5.0); ANION GAP 10.8 MEQ/L (5-15); BILIRUBIN,TOTAL 0.3 mg/dL (0.2-1.3); Calcium 9.7 mg/dL (8.4-10.2); Creatinine 1 0.68 mg/dL (0.52-1.04); EST GLOMERULAR FILTRATION RATE 124.7 ML/MIN; Potassium 3.2 mmol/L (3.5-5.1); Total Protein 7.3 g/dL (6.3-8.2)
[2023-12-27] MEDS: TYLENOL 325 MG PO STA (05:00)
[2023-12-27 05:21] VITALS: RESP 18
[2023-12-27 05:22] LABS: INFLUENZA A NEGATIVE (NEGATIVE); INFLUENZA B NEGATIVE (NEGATIVE); RESPIRATORY SYNCTIAL VIRUS NEGATIVE (NEGATIVE); SARS-CoV-2 Xpert Express NEGATIVE (NEGATIVE)
[2023-12-27 05:37] LABS: Eosinophil 4 % (0.00-3.0); Lymphocytes 32 % (24-44); Monocyte 2 % (0.0-12.0); Neutrophils 62 % (1.56-6.13); Platelet Estimate NORMAL (NORMAL); Total Cells Counted 100
[2023-12-27] MEDS ORDERED: BENADRYL 50 MG/ML ONE (05:38)
[2023-12-27] MEDS ORDERED: TORAdol 30 mg Injection ONE (05:38)
[2023-12-27] MEDS: BENADRYL 50 MG/ML IV ONE (05:42)
[2023-12-27] MEDS: TORAdol 30 mg Injection IV ONE (05:43)
--- NOTE | 2023-12-27 05:49 | XRAY ---
CLINICAL HISTORY: abdominal pain COMPARISON: none TECHNIQUE: Contiguous axial images were obtained from the level of the diaphragm to the pubic symphysis without intravenous or oral contrast. Coronal and sagittal reconstructions were likewise performed and indicated to increase the sensitivity for detecting clinically relevant pathology. CT scan was performed according to ALARA (as low as reasonable achievable). FINDINGS: The visualized lung bases are clear. Evaluation of the abdominal and pelvic visceral organs is limited without intravenous contrast. The unenhanced liver, spleen, pancreas, and right adrenal glands are grossly unremarkable. The gallbladder is present. A 2.5 X 1.4 cm nodule seen in left adrenal gland. The kidneys are normal in size and attenuation without obvious calcification. There is no hydronephrosis or perinephric stranding. The ureters are normal in caliber. No adenopathy or fluid collections are seen. No evidence of focal or diffuse bowel wall thickening or evidence of bowel obstruction is seen. The appendix is visualized in the right lower quadrant and appears within normal limits. The aorta is normal in caliber. The urinary bladder is normal in contour. Pelvic viscera are grossly unremarkable. No aggressive appearing osseous lesions are identified. IMPRESSION: 1.A 2.5 X 1.4 cm nodule seen in left adrenal gland. Advised clinical correlation and further evaluation with CT adrenal protocol. Electronically Signed by: Renny Ivey MD. (12/27/2023 05:43:43 EDT)
--- NOTE | 2023-12-27 05:49 | ERPHSYRPT ---
- History of Present Illness Time Seen by Provider: 12/27/23 05:09 Historian: patient Exam Limitations: no limitations Patient Subjective Stated Complaint: "I woke up a couple hours ago with this pain and been vomiting. My head is hurting bad and I feel like I could pass o ut". Triage Nursing Assessment: Pt presents to ER with complaints of abdominal pain, headache, and vomiting. 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 Rates pain 10/10 scale. States headache is a throbbing ache. Feels lightheaded and dizzy. Pupils are PERRL. Respirations are slightly labored, appears anxious. Right lung diminished with mild wheezes throughout upon exhalation. Abdomen is soft and bowel sounds present upon exam. Denies d iarrhea. States ate "TV Dinner" around midnight. Skin is pale, warm, and dry. Urine is collected upon arrival and noted to be cloudy. Family at bedside. Physician History: 23-year-old female presented in the ER with complains of headache and nausea vomiting with abdominal pain. Patient reports sudden onset nausea and vomiting around 12:30 AM with multiple episodes of nonprojectile, nonbilious but no hematemesis. Complaining of upper abdominal dull aching pain, no significant aggravating or relieving factors. Patient reports having history of migraine with similar symptoms but usually does not have abdominal pain associated with it. Denies fever or chills. Denies any neck pain, no known sick contact. No diarrhea. Because of repeated vomiting she is feeling weak fatigued tired and feels as if she is going to pass out. Allergies/Adverse Reactions: codeine Allergy (Severe, Verified 12/27/23 04:29) unknown Hx Tetanus, Diphtheria Vaccination/Date Given: No Hx Influenza Vaccination/Date Given: No Hx Pneumococcal Vaccination/Date Given: No Immunizations Up to Date: No Travel Risk - International Travel Have you traveled outside of the country in past 3 weeks: No - Emerging Infectious Disease Are you exhibiting symptoms associated with any current EIDs: No - Review of Systems Constitutional: Fatigue, Weakness Eyes: No Symptoms Ears, Nose, & Throat: No Symptoms Respiratory: No Symptoms Cardiac: No Symptoms Abdominal/Gastrointestinal: Abdominal Pain, Nausea, Vomiting Genitourinary Symptoms: No Symptoms Musculoskeletal: Myalgias Skin: No Symptoms Neurological: Headache Endocrine: No Symptoms Hematologic/Lymphatic: No Symptoms Immunological/Allergic: No Symptoms - Past Medical History Pertinent Past Medical History: Yes Neurological History: No Pertinent History ENT History: No Pertinent History Cardiac History: No Pertinent History Respiratory History: No Pertinent History Endocrine Medical History: No Pertinent History Musculoskeletal History: No Pertinent History GI Medical History: No Pertinent History History: No Pertinent History Psycho-Social History: Depression Female Reproductive Disorders: Other - Past Surgical History Past Surgical History: Yes Neuro Surgical History: No Pertinent History Cardiac: No Pertinent History Respiratory: No Pertinent History Gastrointestinal: No Pertinent History Genitourinary: No Pertinent History Musculoskeletal: No Pertinent History Female Surgical History: No Pertinent History Other Surgical History: TONSILECTOMY Significant Family History: no pertinent family hx - Female History Hx Last Menstrual Period: 12/02/2023 Hx Now: No - Social History Smoking Status: Current every day smoker How long have you smoked: YR Exposure to second hand smoke: Yes Drug Use: none Patient Lives Alone: No - Social Determinants of Health Will the patient participate in the screening: Yes Do you worry about a steady place to live?: No Do you have any problems with any of the following?: No known problems In the past 12 months,have you had to go without utilities?: No Transportation Issues: No Has anyone in your support network made you feel unsafe?: No Have you or anyone in your house had to go without enough: No - Nursing Vital Signs Nursing Vital Signs: Initial Vital Signs Temperature 96.7 F 12/27/23 04:24 Pulse Rate 85 12/27/23 04:24 Respiratory Rate 22 12/27/23 04:24 Blood Pressure 105/80 12/27/23 04:24 O2 Sat by Pulse Oximetry 100 12/27/23 04:24 Pain Scale Pain Intensity 8 - Physical Exam General Appearance: no apparent distress, alert, anxiety Eye Exam: PERRL/EOMI Ears, Nose, Throat Exam: normal ENT inspection Neck Exam: normal inspection, supple, full range of motion Respiratory Exam: normal breath sounds, lungs clear Cardiovascular Exam: regular rate/rhythm, normal heart sounds Gastrointestinal/Abdomen Exam: soft, normal bowel sounds, tenderness (Mild upper abdominal tenderness to deep palpation, no guarding or rebound) Back Exam: normal inspection, normal range of motion Extremity Exam: normal inspection, normal range of motion Neurologic Exam: alert, oriented x 3, cooperative, nurse first aid II-XII nml as tested, normal mood/affect, nml cerebellar function, nml station & gait, sensation nml, No motor deficits Skin Exam: normal color SpO2 Interpretation: normal SpO2: 99 O2 Delivery: Room Air Ordered Tests: Active Orders 24 hr Category Date Time Status IV Insertion STAT Care 12/27/23 04:35 Active NPO Diet 12/27/23 04:35 Active ABDOMEN AND PELVIS W/0 CONTRAS [CT] Stat Exams 12/27/23 05:07 Taken CBC W DIFF Stat Lab 12/27/23 04:41 Completed CMP Stat Lab 12/27/23 04:41 Completed HCG QUALITATIVE, URINE Stat Lab 12/27/23 04:41 Completed Manual Differential NC Stat Lab 12/27/23 04:41 Completed UA W/RFX UR CULTURE Stat Lab 12/27/23 04:37 Completed Medication Summary Generic Name Dose Route Start Last Admin Trade Name Freq PRN Reason Stop Dose Admin Sodium Chloride 1,000 mls @ 999 mls/hr 12/27/23 04:38 12/27/23 04:40 Sodium Chloride 0.9% 1000 Ml IV 01/26/24 05:38 999 mls/hr .Q1H1M SUSHILA Administration Discontinued Medications Generic Name Dose Route Start Last Admin Trade Name Freq PRN Reason Stop Dose Admin Acetaminophen 975 mg 12/27/23 04:58 12/27/23 05:00 Acetaminophen 325 Mg Tablet PO 12/27/23 04:59 975 mg STAT STA Administration Acetaminophen Confirm 12/27/23 04:59 Acetaminophen 325 Mg Tablet Administered 12/27/23 05:00 Dose 975 mg .ROUTE .STK-MED ONE Diphenhydramine HCl 25 mg 12/27/23 05:39 12/27/23 05:42 Diphenhydramine Hcl 50 Mg/Ml Vial IV 12/27/23 05:40 25 mg STAT ONE Administration Diphenhydramine HCl Confirm 12/27/23 05:38 Diphenhydramine Hcl 50 Mg/Ml Vial Administered 12/27/23 05:39 Dose 50 mg .ROUTE .STK-MED ONE Ketorolac Tromethamine 30 mg 12/27/23 05:39 12/27/23 05:43 Ketorolac Tromethamine 30 Mg/Ml Inj IV 12/27/23 05:40 30 mg STAT ONE Administration Ketorolac Tromethamine Confirm 12/27/23 05:38 Ketorolac Tromethamine 30 Mg/Ml Inj Administered 12/27/23 05:39 Dose 30 mg .ROUTE .STK-MED ONE Ondansetron HCl 4 mg 12/27/23 04:35 12/27/23 04:40 Ondansetron Hcl 4 Mg/2 Ml Vial IV 12/27/23 04:36 4 mg STAT ONE Administration Ondansetron HCl Confirm 12/27/23 04:37 Ondansetron Hcl 4 Mg/2 Ml Vial Administered 12/27/23 04:38 Dose 4 mg .ROUTE .STK-MED ONE Lab/Rad Data: Laboratory Result Diagrams 12/27/23 04:41 12/27/23 04:41 Laboratory Results 12/27/23 12/27/23 12/27/23 Range/Units 04:42 04:41 04:41 WBC (3.98-10.04) x10^3/uL RBC (3.93-5.22) x10^6/uL Hgb (11.2-15.7) g/dL Hct (34.1-44.9) % MCV (79.4-94.8) fL MCH (25.6-32.2) pg MCHC (32.2-35.5) g/dL RDW (11.7-14.4) % Plt Count (182-369) x10^3/uL MPV (9.4-12.3) fL Segmented Neutrophils (1.56-6.13) % Lymphocytes (Manual) (24-44) % Monocytes (Manual) (0.0-12.0) % Eosinophils (Manual) (0.00-3.0) % Platelet Estimate (NORMAL) RBC Morphology Sodium 139 (135-145) mmol/L Potassium 3.2 L (3.5-5.1) mmol/L Chloride 103 (98-107) mmol/L Carbon Dioxide 29 (22-30) mmol/L Anion Gap 10.8 (5-15) MEQ/L BUN 13 (7-17) mg/dL Creatinine 0.68 (0.52-1.04) mg/dL Estimated GFR 124.7 ML/MIN Glucose 137 H (74-106) mg/dL Calcium 9.7 (8.4-10.2) mg/dL Total Bilirubin 0.30 (0.2-1.3) mg/dL AST 41 H (14-36) U/L ALT 84 H (0-35) U/L Alkaline Phosphatase 104 (38-126) U/L Serum Total Protein 7.3 (6.3-8.2) g/dL Albumin 4.2 (3.5-5.0) g/dL Urine Color (Yellow) Urine Appearance (Clear) Urine pH (4.6-8.0) Ur Specific [place] (1.005-1.030) Urine Protein (Negative) Urine Glucose (UA) (Negative) mg/dL Urine Ketones (Negative) Urine Blood (Negative) Urine Nitrite (Negative) Urine Bilirubin (Negative) Urine Urobilinogen (0.2) mg/dL Ur Leukocyte Esterase (Negative) U Hyaline Cast (Auto) (0-2) /LPF Urine Microscopic RBC (0-5) /HPF Urine Microscopic WBC (0-5) /HPF Ur Epithelial Cells (None Seen) /HPF Urine Bacteria (None Seen) /HPF Urine Culture Reflexed (NO) Urine HCG, Qual NEGATIVE (NEGATIVE) Influenza Type A Ag NEGATIVE (NEGATIVE) Influenza Type B Ag NEGATIVE (NEGATIVE) RSV (PCR) NEGATIVE (NEGATIVE) SARS-CoV-2 (PCR) NEGATIVE (NEGATIVE) 12/27/23 12/27/23 Range/Units 04:41 04:37 WBC 15.1 H (3.98-10.04) x10^3/uL RBC 4.40 (3.93-5.22) x10^6/uL Hgb 12.9 (11.2-15.7) g/dL Hct 39.0 (34.1-44.9) % MCV 88.6 (79.4-94.8) fL MCH 29.3 (25.6-32.2) pg MCHC 33.1 (32.2-35.5) g/dL RDW 12.8 (11.7-14.4) % Plt Count 314 (182-369) x10^3/uL MPV 10.2 (9.4-12.3) fL Segmented Neutrophils 62 H (1.56-6.13) % Lymphocytes (Manual) 32 (24-44) % Monocytes (Manual) 2 (0.0-12.0) % Eosinophils (Manual) 4 H (0.00-3.0) % Platelet Estimate NORMAL (NORMAL) RBC Morphology NORMAL Sodium (135-145) mmol/L Potassium (3.5-5.1) mmol/L Chloride (98-107) mmol/L Carbon Dioxide (22-30) mmol/L Anion Gap (5-15) MEQ/L BUN (7-17) mg/dL Creatinine (0.52-1.04) mg/dL Estimated GFR ML/MIN Glucose (74-106) mg/dL Calcium (8.4-10.2) mg/dL Total Bilirubin (0.2-1.3) mg/dL AST (14-36) U/L ALT (0-35) U/L Alkaline Phosphatase (38-126) U/L Serum Total Protein (6.3-8.2) g/dL Albumin (3.5-5.0) g/dL Urine Color Yellow (Yellow) Urine Appearance Turbid A (Clear) Urine pH 7.0 (4.6-8.0) Ur Specific [place] 1.015 (1.005-1.030) Urine Protein Negative (Negative) Urine Glucose (UA) Negative (Negative) mg/dL Urine Ketones Negative (Negative) Urine Blood Negative (Negative) Urine Nitrite Negative (Negative) Urine Bilirubin Negative (Negative) Urine Urobilinogen 1.0 A (0.2) mg/dL Ur Leukocyte Esterase Negative (Negative) U Hyaline Cast (Auto) NONE SEEN (0-2) /LPF Urine Microscopic RBC 0-2 (0-5) /HPF Urine Microscopic WBC 0-2 (0-5) /HPF Ur Epithelial Cells None Seen (None Seen) /HPF Urine Bacteria None Seen (None Seen) /HPF Urine Culture Reflexed NO (NO) Urine HCG, Qual (NEGATIVE) Influenza Type A Ag (NEGATIVE) Influenza Type B Ag (NEGATIVE) RSV (PCR) (NEGATIVE) SARS-CoV-2 (PCR) (NEGATIVE) - Progress Progress: improved Progress Note: 12/27/23 05:57 23-year-old is evaluated for upper abdominal pain with nausea vomiting and headache. Patient has no signs of meningismus. She is afebrile. Given fluids and symptomatic treatment, on reevaluation her headache and abdominal pain is better. No vomiting since in the ER. Workup showed white count of 15, mildly elevated transaminases with mildly low potassium. No UTI. CT abdomen pelvis did not show any acute intra-abdominal pelvic findings. Has a small adrenal nodule. I believe patient's symptoms are a combination of gastroenteritis and some migraine. I will give her Zofran to go home, recommended taking Tylenol and outpatient follow-up. Discussed signs symptoms of worsening needing return to ER which she seems understanding. Stable for discharge. Counseled pt/family regarding: lab results, diagnosis, need for follow-up, rad results Medical Desision Making - Diagnostic Testing Diagnostic test were ordered, analyzed, and reviewed by me: Yes Radiological Interpretation: Reviewed by me, Teleradiologist Report - Risk of complications The pt has a mod risk of morbidity or mortality based on: Need for prescription drug management - Departure Departure Disposition: Home Clinical Impression: Gastroenteritis, Migraine Condition: Stable Critical Care Time: No Referrals: DOCTOR,NO FAMILY [Primary Care Provider] - Follow up with PCP 1 day Instructions: Viral gastroenteritis in adults, Migraine in adults Additional Instructions: Take Tylenol/Zofran as needed. Drink plenty of fluids to keep yourself well- hydrated. Follow-up with your primary care for reevaluation. Return to ER for intractable headache, abdominal pain, vomiting, fever chills etc. Prescriptions: Ondansetron ODT 4 MG [Zofran Odt 4 mg] 1 ea PO QIDPRN PRN #7 tablet PRN Reason: n/v
[2023-12-27 06:04] VITALS: BP 104/72; PULSE 79
== END 2023-12-27 06:14 | disposition home or self-care (01) ==
LOC: ED 04:18
DX: K52.9 Noninfective gastroenteritis and colitis, unspecified (principal); G43.909 Migraine, unspecified, not intractable, without status migrainosus; R11.2 Nausea with vomiting, unspecified; R10.10 Upper abdominal pain, unspecified; Z79.899 Other long term (current) drug therapy; Z72.0 Tobacco use
CPT/HCPCS: 0241U; 36000; 36415; 74176; 80053; 81001; 81025; 85025; 96374; 96375; 99284; J1200; J1885; J2405; A9270-GY

== ENCOUNTER 2024-04-09 15:27 | Emergency (ER) | payer OTHER ==
[2024-04-09 15:44] VITALS: TEMP 98.7; O2SAT 100
[2024-04-09] MEDS ORDERED: DECADRON 10MG INJ. ONE (15:59)
[2024-04-09] MEDS: DECADRON 10MG INJ. PO ONE (16:00)
[2024-04-09] MEDS ORDERED: PROVENTIL 2.5 MG/3 ML NEB IH ONE (16:01)
[2024-04-09] MEDS: PROVENTIL 2.5 MG/3 ML NEB IH ONE (16:03)
--- NOTE | 2024-04-09 16:30 | ERPHSYRPT ---
- History of Present Illness Time Seen by Provider: 04/09/24 15:38 Source: patient Exam Limitations: no limitations Patient Subjective Stated Complaint: "I've been having a rash for the past couple of weeks, I was seen at [facility] 3 days ago and they told me I have allergies so I've been taking Claritan but it's not helping." Triage Nursing Assessment: Pt presents to ER with complaints of possible allergic reaction. Pt declines any new exposures or history of allergic reaction. Was seen in walk-in clinic 3 days ago and told it was allergies. Pt has red rash to upper chest, slight swelling of face, tingling in throat, frequent cough. States rash is itchy. Pt is alert and oriented x3. Respirations are easy. Spo2 100%. Pt states is 14 weeks , no issues with . Seeing Dr. Diaz for care. 1. Physician History: Patient here with cough cold congestion. Patient also has a rash on her chest. Patient is 14 weeks . Patient states has been going on for approximately 2 weeks. States that she was seen at walk-in clinic 3 days ago and told she had allergic reaction. Tingling in her throat, cough. Describes rash as itchy. Patient is taking PO well. Same number of urinations and defecations. The patient has no signs of altered mental status, nuchal rigidity, signs of meningitis. The patient is up-to-date on all vaccinations. Patient follows with Dr. Diaz RESERVATIONS SPECIALIST. She is 14 weeks . No issues with the , no abdominal pain, vaginal bleeding, spotting, fever, signs of infection. Allergies/Adverse Reactions: codeine Allergy (Severe, Verified 04/09/24 15:36) unknown Home Medications: Loratadine 10 mg [Claritin 10 mg] 1 tab PO DAILY PRN 04/09/24 [History] Vit No.179/Iron/Folic [ Tablet] 1 mg PO DAILY 04/09/24 [History] Hx Tetanus, Diphtheria Vaccination/Date Given: No Hx Influenza Vaccination/Date Given: No Hx Pneumococcal Vaccination/Date Given: No Immunizations Up to Date: No Travel Risk - International Travel Have you traveled outside of the country in past 3 weeks: No - Emerging Infectious Disease Are you exhibiting symptoms associated with any current EIDs: No - Past Medical History Pertinent Past Medical History: Yes Neurological History: No Pertinent History ENT History: No Pertinent History Cardiac History: No Pertinent History Respiratory History: No Pertinent History Endocrine Medical History: No Pertinent History Musculoskeletal History: No Pertinent History GI Medical History: No Pertinent History History: No Pertinent History Psycho-Social History: No Pertinent History Female Reproductive Disorders: Other - Past Surgical History Past Surgical History: Yes Neuro Surgical History: No Pertinent History Cardiac: No Pertinent History Respiratory: No Pertinent History Gastrointestinal: No Pertinent History Genitourinary: No Pertinent History Musculoskeletal: No Pertinent History Female Surgical History: No Pertinent History Other Surgical History: TONSILECTOMY Significant Family History: no pertinent family hx - Female History Hx Last Menstrual Period: 12/02/23 Hx Now: Yes Gestational Age: 14 weeks - Social History Smoking Status: Never smoker How long have you smoked: YR Exposure to second hand smoke: No Drug Use: none Patient Lives Alone: No - Social Determinants of Health Will the patient participate in the screening: Yes Do you worry about a steady place to live?: No Do you have any problems with any of the following?: No known problems In the past 12 months,have you had to go without utilities?: No Transportation Issues: No Has anyone in your support network made you feel unsafe?: No Have you or anyone in your house had to go without enough: No - Nursing Vital Signs Nursing Vital Signs: Initial Vital Signs Temperature 98.7 F 04/09/24 15:36 Pulse Rate 86 04/09/24 15:36 Respiratory Rate 18 04/09/24 15:36 Blood Pressure 118/79 04/09/24 15:36 O2 Sat by Pulse Oximetry 100 04/09/24 15:36 Pain Scale Pain Intensity 0 - Physical Exam SpO2: 100 Comments: 04/09/24 16:33 Review of Systems Constitutional: Negative for fever. HENT: Cough, cold, congestion Respiratory: Negative for shortness of breath. Cardiovascular: Negative for chest pain. Gastrointestinal: Negative for abdominal pain. Genitourinary: Negative for dysuria. Musculoskeletal: Negative for back pain. Skin: Negative for rash. Neurological: Negative for headaches. Psychiatric/Behavioral: Negative for behavioral problems. All other systems reviewed and are negative. Physical Exam Vitals signs and nursing note reviewed. Constitutional: Appearance: Patient is well-developed. HENT: Head: Normocephalic and atraumatic. Eyes: Conjunctiva/sclera: Conjunctivae normal. Neck: Musculoskeletal: Normal range of motion. Trachea: No tracheal deviation. Cardiovascular: Rate and Rhythm: Normal rate. Pulmonary: Effort: Pulmonary effort is normal. No respiratory distress. Minimal end ex piratory wheezing Abdominal: Palpations: Abdomen is soft. Musculoskeletal: General: No deformity. Skin: General: Skin is warm and dry. Rash appears sandpaperlike, viral exanthem like on chest, no vesicles no signs of infection. Neurological/ Psychiatric: Mental Status: Mental status, behavior, interaction with environment is appropriate for patient's age and condition 04/09/24 16:34 - Course Nursing assessment & vital signs reviewed: Yes Ordered Tests: Active Orders 24 hr Category Date Time Status Respiratory Therapy Assessment DAILY RT 04/09/24 16:06 Completed Medication Summary Discontinued Medications Generic Name Dose Route Start Last Admin Trade Name Freq PRN Reason Stop Dose Admin Albuterol Sulfate 2.5 mg 04/09/24 15:56 04/09/24 16:03 Albuterol Sulfate 2.5 Mg/3 Ml Neb IH 04/09/24 15:57 2.5 mg STAT ONE Administration Albuterol Sulfate Confirm 04/09/24 16:01 Albuterol Sulfate 2.5 Mg/3 Ml Neb Administered 04/09/24 16:02 Dose 2.5 mg IH .STK-MED ONE Dexamethasone Sodium Phosphate 10 mg 04/09/24 15:56 04/09/24 16:00 Dexamethasone Sod Phosphate 10 Mg/Ml PO 04/09/24 15:57 10 mg STAT ONE Administration Dexamethasone Sodium Phosphate Confirm 04/09/24 15:59 Dexamethasone Sod Phosphate 10 Mg/Ml Administered 04/09/24 16:00 Dose 10 mg .ROUTE .STK-MED ONE - Progress Progress: improved Progress Note: 04/09/24 16:35 Rash appears to be a viral exanthem which does connect with patient's acute bronchitis. Minimal end expiratory wheezing. Therefore we did give a breathing treatment and steroids. Prior to treatment we did discuss with patient's RESERVATIONS SPECIALIST, Dr. Diaz. He felt comfortable with treating patient as bronchitis going home. Patient felt improved with breathing treatment and steroids here. Lung sounds have become clear. Rash does not appear infected or vesicular. Plan for Robitussin and albuterol inhaler going home. Patient may return here sooner. Otherwise close follow-up with RESERVATIONS SPECIALIST in 2 to 3 days. Discussed with : Keily Counseled pt/family regarding: diagnosis, need for follow-up - Departure Departure Disposition: Home Clinical Impression: Acute bronchitis, Viral rash Condition: Stable Critical Care Time: No Referrals: DOCTOR,NO FAMILY [Primary Care Provider] - Follow up/PCP as directed Instructions: Acute bronchitis in adults, Viral Exanthem (DC) Prescriptions: Dextromethorphan Polistirex [Robitussin ER] 30 mg PO TID PRN 10 Days #10 Albuterol 8 gm Mdi Hfa [Ventolin Hfa MDI] 8 gm IH Q4H #1
[2024-04-09 16:33] VITALS: BP 100/66; PULSE 76; RESP 16
== END 2024-04-09 16:39 | disposition home or self-care (01) ==
LOC: ED 15:27
DX: J20.9 Acute bronchitis, unspecified (principal); R21 Rash and other nonspecific skin eruption; Z33.1 Pregnant state, incidental
CPT/HCPCS: 94640; 99282; J1100; J7609; A9270-GY

== ENCOUNTER 2024-04-22 14:33 | Emergency (ER) | payer OTHER ==
[2024-04-22 14:56] VITALS: RESP 18; TEMP 96.9
[2024-04-22] MEDS ORDERED: Augmentin 875-125 Tablet ONE (15:19)
[2024-04-22] MEDS: Augmentin 875-125 Tablet PO ONE (15:22)
--- NOTE | 2024-04-22 15:58 | ERPHSYRPT ---
- History of Present Illness Time Seen by Provider: 04/22/24 15:03 Source: patient Exam Limitations: no limitations Patient Subjective Stated Complaint: Pt. states, "I have this cough for weeks, was seen at [facility] and here in ER, tried mucinex, claritin and robitussin like they said and I've just gotten worse." Triage Nursing Assessment: pt. presents a&ox4, in nad, ambulated back to bed without difficulty, able to move all 4 ext. without difficulty Physician History: 24-year-old female 16 weeks gestation presented to the ER with rectal dry cough for the last 2 to 3 weeks with progressive worsening. She has tried Claritin and Mucinex along with inhaler with no significant relief. Patient reports having coughing bouts. No fever or chills reported. Denies any abdominal pain, vaginal bleeding, pelvic cramping etc. Patient is not in any distress, no wheezing. Lungs fairly clear to auscultation but does have productive cough while in the ER. Abdominal exam is soft nontender. heart tone and 150s. With patient's symptoms going on for more than couple of weeks, I will treat her with Augmentin and will also give her short course of steroids and recommended using inhaler and [id number] medications for symptomatic relief. Discussed signs symptoms of worsening needing return to ER which she seems understanding. Stable for discharge. Recommended outpatient follow-up with primary care and OB. Allergies/Adverse Reactions: codeine Allergy (Severe, Verified 04/09/24 15:36) unknown Home Medications: Loratadine 10 mg [Claritin 10 mg] 1 tab PO DAILY PRN 04/09/24 [History] Vit No.179/Iron/Folic [ Tablet] 1 mg PO DAILY 04/09/24 [History] Hx Tetanus, Diphtheria Vaccination/Date Given: No Hx Influenza Vaccination/Date Given: No Hx Pneumococcal Vaccination/Date Given: No Immunizations Up to Date: No Travel Risk - International Travel Have you traveled outside of the country in past 3 weeks: No - Emerging Infectious Disease Are you exhibiting symptoms associated with any current EIDs: Yes Symptoms: Cough: New Onset - Review of Systems Constitutional: No Symptoms Ears, Nose, & Throat: Throat Swelling Respiratory: Cough Cardiac: No Symptoms Abdominal/Gastrointestinal: No Symptoms Genitourinary Symptoms: No Symptoms Neurological: No Symptoms Psychological: No Symptoms Immunological/Allergic: No Symptoms - Past Medical History Pertinent Past Medical History: Yes Neurological History: No Pertinent History ENT History: No Pertinent History Cardiac History: No Pertinent History Respiratory History: No Pertinent History Endocrine Medical History: No Pertinent History Musculoskeletal History: No Pertinent History GI Medical History: No Pertinent History History: No Pertinent History Psycho-Social History: No Pertinent History Female Reproductive Disorders: Other - Past Surgical History Past Surgical History: Yes Neuro Surgical History: No Pertinent History Cardiac: No Pertinent History Respiratory: No Pertinent History Gastrointestinal: No Pertinent History Genitourinary: No Pertinent History Musculoskeletal: No Pertinent History Female Surgical History: No Pertinent History Other Surgical History: TONSILECTOMY Significant Family History: no pertinent family hx - Female History Hx Last Menstrual Period: 12/02/23 Hx Now: Yes Gestational Age: 15 - Social History Smoking Status: Never smoker How long have you smoked: YR Exposure to second hand smoke: No Drug Use: none Patient Lives Alone: No - Social Determinants of Health Will the patient participate in the screening: Yes Do you worry about a steady place to live?: No Do you have any problems with any of the following?: No known problems In the past 12 months,have you had to go without utilities?: No Transportation Issues: No Has anyone in your support network made you feel unsafe?: No Have you or anyone in your house had to go without enough: No - Nursing Vital Signs Nursing Vital Signs: Initial Vital Signs Temperature 96.9 F 04/22/24 14:47 Pulse Rate 133 H 04/22/24 14:47 Respiratory Rate 22 04/22/24 14:47 Blood Pressure 127/89 04/22/24 14:47 O2 Sat by Pulse Oximetry 98 04/22/24 14:47 Pain Scale Pain Intensity 0 - Physical Exam General Appearance: no apparent distress Eye Exam: PERRL/EOMI Ears, Nose, Throat Exam: normal ENT inspection Neck Exam: normal inspection, supple, full range of motion Respiratory Exam: normal breath sounds, lungs clear Cardiovascular Exam: regular rate/rhythm, normal heart sounds Gastrointestinal/Abdomen Exam: soft, normal bowel sounds, No tenderness Extremity Exam: normal inspection, normal range of motion Neurologic Exam: alert, oriented x 3, cooperative Skin Exam: normal color, warm SpO2 Interpretation: normal SpO2: 98 O2 Delivery: Room Air Ordered Tests: Medication Summary Discontinued Medications Generic Name Dose Route Start Last Admin Trade Name Freq PRN Reason Stop Dose Admin Amoxicillin/Clavulanate Potassium 875 mg 04/22/24 15:05 04/22/24 15:22 Amox Tr/Potassium Clavulanate 875 Mg Tablet PO 04/22/24 15:06 875 mg STAT ONE Administration Amoxicillin/Clavulanate Potassium Confirm 04/22/24 15:19 Amox Tr/Potassium Clavulanate 875 Mg Tablet Administered 04/22/24 15:20 Dose 875 mg .ROUTE .STK-MED ONE - Progress Progress: unchanged Air Movement: good Progress Note: 04/22/24 15:58 24-year-old female 16 weeks gestation presented to the ER with rectal dry cough for the last 2 to 3 weeks with progressive worsening. She has tried Claritin and Mucinex along with inhaler with no significant relief. Patient reports having coughing bouts. No fever or chills reported. Denies any abdominal pain, vaginal bleeding, pelvic cramping etc. Patient is not in any distress, no wheezing. Lungs fairly clear to auscultation but does have productive cough while in the ER. Abdominal exam is soft nontender. heart tone and 150s. She is offered x-rays but she is reluctant to get it done. With patient's symptoms going on for more than couple of weeks, I will treat her with Augmentin and will also give her short course of steroids and recommended using inhaler and [id number] medications for symptomatic relief. Discussed signs symptoms of worsening needing return to ER which she seems understanding. Stable for discharge. Recommended outpatient follow-up with primary care and OB. Blood Culture(s) Obtained: No Antibiotics given: Yes Counseled pt/family regarding: diagnosis, need for follow-up Medical Desision Making - Risk of complications The pt has a mod risk of morbidity or mortality based on: Need for prescription drug management The pt has a high risk of morbidity or mortality based on: Decision regarding hospitilization or escalation of hosp level of care - Departure Clinical Impression: Acute bronchitis, Condition: Stable Critical Care Time: No Referrals: DOCTOR,NO FAMILY [Primary Care Provider] - Follow up with PCP 1 day Instructions: Cough, Adult (DC) Additional Instructions: Use inhaler along with cough suppressants as needed. Follow-up with primary care for reevaluation in 1 to 2 days. Return to ER for worsening cough or if having fever chills, difficulty breathing, abdominal/pelvic cramping/vaginal bleeding discharge etc. Prescriptions: Amox Tr/Potass Clav. 875 mg [Augmentin 875-125 Tablet] 875 mg PO BID #14 tablet Prednisone 20 mg [Deltasone 20 mg] 40 mg PO DAILY 5 Days #10 tablet
[2024-04-22 16:09] VITALS: BP 106/80; PULSE 97
[2024-04-22 16:30] VITALS: O2SAT 98
== END 2024-04-22 16:47 | disposition home or self-care (01) ==
LOC: ED 14:33
DX: J20.9 Acute bronchitis, unspecified (principal); Z33.1 Pregnant state, incidental
CPT/HCPCS: 99282; 99283; A9270-GY

== ENCOUNTER 2024-05-24 13:29 | Emergency (ER) | payer OTHER ==
[2024-05-24 13:40] VITALS: TEMP 96.8; O2SAT 98
--- NOTE | 2024-05-24 13:59 | ERPHSYRPT ---
- History of Present Illness Source: patient Exam Limitations: no limitations Patient Subjective Stated Complaint: Pt c/o of left eye redness, left ear pain, and left alevism pain Triage Nursing Assessment: Pt brought to the ER by her mother, vitals wnl, rates head/ear pain as 5/10, pulses normal, skin n/w/d, no difficulty breathing, reports not being able to hear out of her left ear Physician History: Patient has left ear pain and says she cannot hear very well out of it. She also has a left subconjunctival hemorrhage. This started 2 to 3 days ago. Her ear pain started about 3 to 4 days ago. She says she has been sick for about a month or 2 with just some general upper respiratory type symptoms. The ear pain started 2 to 3 days ago and that brought her in especially when she got the subconjunctival Hemorrhage.There is no respiratory difficulty. Allergies/Adverse Reactions: codeine Allergy (Severe, Verified 05/24/24 13:40) unknown Home Medications: Vit No.179/Iron/Folic [ Tablet] 1 mg PO DAILY 04/09/24 [History] Hx Tetanus, Diphtheria Vaccination/Date Given: No Hx Influenza Vaccination/Date Given: No Hx Pneumococcal Vaccination/Date Given: No Travel Risk - International Travel Have you traveled outside of the country in past 3 weeks: No - Emerging Infectious Disease Are you exhibiting symptoms associated with any current EIDs: No Symptoms: Cough: New Onset - Past Medical History Pertinent Past Medical History: Yes Neurological History: No Pertinent History ENT History: No Pertinent History Cardiac History: No Pertinent History Respiratory History: No Pertinent History Endocrine Medical History: No Pertinent History Musculoskeletal History: No Pertinent History GI Medical History: No Pertinent History History: No Pertinent History Psycho-Social History: No Pertinent History Female Reproductive Disorders: Other - Past Surgical History Past Surgical History: Yes Neuro Surgical History: No Pertinent History Cardiac: No Pertinent History Respiratory: No Pertinent History Gastrointestinal: No Pertinent History Genitourinary: No Pertinent History Musculoskeletal: No Pertinent History Female Surgical History: No Pertinent History Other Surgical History: TONSILECTOMY Significant Family History: no pertinent family hx - Female History Hx Last Menstrual Period: 12/02/23 Hx Now: Yes Gestational Age: 21 weeks - Social History Smoking Status: Current every day smoker How long have you smoked: vapes Exposure to second hand smoke: No Drug Use: none Patient Lives Alone: No - Social Determinants of Health Will the patient participate in the screening: Yes Do you worry about a steady place to live?: No Do you have any problems with any of the following?: No known problems In the past 12 months,have you had to go without utilities?: No Transportation Issues: No Has anyone in your support network made you feel unsafe?: No Have you or anyone in your house had to go without enough: No - Nursing Vital Signs Nursing Vital Signs: Initial Vital Signs Temperature 96.8 F 05/24/24 13:34 Pulse Rate 104 H 05/24/24 13:34 Blood Pressure 139/89 05/24/24 13:34 O2 Sat by Pulse Oximetry 98 05/24/24 13:34 Pain Scale Pain Intensity 5 - Physical Exam SpO2: 98 - Course Nursing assessment & vital signs reviewed: Yes Ordered Tests: Active Orders 24 hr Category Date Time Status Erythrocyte Sedimentation Rate Stat Lab 05/24/24 14:15 Completed Lab/Rad Data: Laboratory Results 05/24/24 Range/Units 14:15 ESR 27 H (0-20) mm/hr - Progress Progress: unchanged Progress Note: Patient was stable throughout stay. Her laboratory work looked okay. Her ESR was only 27. I do not think that she has temporal arteritis although that was on the differential. Also in the differential was otitis media and ruptured tympanic membrane and sinusitis. She also has a subconjunctival hemorrhage which I believe is unrelated. She has been coughing I think that is probably why she hemorrhaged. She is in no respiratory distress. She has been treated on Augmentin for bronchitis. She has been on it about 3 days.I am going to have her continue that and add Cortisporin drops. I think the patient basically has a ruptured tympanic membrane.She said that she did have some fluid drainage from her ear. Her hearing is intact neurologically. 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.She did not have significant findings for temporal arteritis 05/24/24 15:29 05/24/24 15:31 Medical Desision Making - Diagnostic Testing Diagnostic test were ordered, analyzed, and reviewed by me: Yes - Risk of complications Minimal Risk: Minimal risk of morbidity - Departure Departure Disposition: Home Clinical Impression: Ruptured tympanic membrane Condition: Stable Critical Care Time: No Referrals: DOCTOR,NO FAMILY [Primary Care Provider] - Follow up/PCP as directed Instructions: Ruptured Eardrum (DC) Prescriptions: Héctor/Baci/Poly/Hc Ear Susp [Cortisporin Ear Drops 10 ml Suspension] 3 drops OT TID #10 ml
[2024-05-24 15:30] VITALS: BP 135/86; PULSE 106
== END 2024-05-24 15:41 | disposition home or self-care (01) ==
LOC: ED 13:29
DX: H72.92 Unspecified perforation of tympanic membrane, left ear (principal); H92.02 Otalgia, left ear; H57.12 Ocular pain, left eye; Z33.1 Pregnant state, incidental; Z3A.21 21 weeks gestation of pregnancy
CPT/HCPCS: 36415; 85652; 86140; 99282; 99283; 99284

== ENCOUNTER 2024-08-06 19:50 | Emergency (ER) | payer OTHER ==
[2024-08-06 20:45] VITALS: RESP 18; TEMP 97.8
[2024-08-06 21:21] VITALS: BP 116/86; PULSE 92
[2024-08-06] MEDS ORDERED: XYLOCAINE VISCOUS 2% 15 ML CUP ONE (21:23)
[2024-08-06] MEDS ORDERED: CETACAINE SPRAY ONE (21:23)
[2024-08-06] MEDS ORDERED: NORCO 5/325 MG ONE (21:23)
--- NOTE | 2024-08-06 21:23 | ERPHSYRPT ---
- History of Present Illness Time Seen by Provider: 08/06/24 20:37 Source: patient, family Exam Limitations: no limitations Patient Subjective Stated Complaint: C/O left jaw/tooth pain for approx one week that is becoming worse Triage Nursing Assessment: Patient ambulated back to ER. She is alert and oriented. No SOB. Left cheek swollen. Physician History: 24-year-old female 1 para 0 at 32 weeks gestation presented to the ER with right lower jaw pain. Patient has history of broken teeth. Reports gradually increasing pain for the last couple of days. Has been taking Tylenol with no significant relief. Denies any fever or chills. No pelvic cramping, no vaginal bleeding discharge. Has tenderness swelling in the right lower molar area. No fluctuation. After informed consent about [place] patient is given 1 dose. Started on Augmentin and given dental balls. Recommended outpatient dental follow-up. Allergies/Adverse Reactions: codeine Allergy (Severe, Verified 08/06/24 20:34) unknown Home Medications: Vit No.179/Iron/Folic [ Tablet] 1 mg PO DAILY 04/09/24 [History] Hx Tetanus, Diphtheria Vaccination/Date Given: Yes Hx Influenza Vaccination/Date Given: No Hx Pneumococcal Vaccination/Date Given: No Immunizations Up to Date: Yes Travel Risk - International Travel Have you traveled outside of the country in past 3 weeks: No - Emerging Infectious Disease Are you exhibiting symptoms associated with any current EIDs: No Symptoms: Cough: New Onset - Review of Systems Constitutional: No Symptoms Ears, Nose, & Throat: Mouth Pain, Loose Teeth Respiratory: No Symptoms Cardiac: No Symptoms Abdominal/Gastrointestinal: No Symptoms Genitourinary Symptoms: Musculoskeletal: No Symptoms Neurological: No Symptoms - Past Medical History Pertinent Past Medical History: Yes Neurological History: No Pertinent History ENT History: No Pertinent History Cardiac History: No Pertinent History Respiratory History: No Pertinent History Endocrine Medical History: No Pertinent History Musculoskeletal History: No Pertinent History GI Medical History: No Pertinent History History: No Pertinent History Psycho-Social History: No Pertinent History Female Reproductive Disorders: Other - Past Surgical History Past Surgical History: Yes Neuro Surgical History: No Pertinent History Cardiac: No Pertinent History Respiratory: No Pertinent History Gastrointestinal: No Pertinent History Genitourinary: No Pertinent History Musculoskeletal: No Pertinent History Female Surgical History: No Pertinent History Significant Family History: no pertinent family hx - Female History Hx Last Menstrual Period: 12/02/23 Hx Now: Yes Gestational Age: 32 weeks - Social History Smoking Status: Never smoker Exposure to second hand smoke: No Drug Use: none - Social Determinants of Health Will the patient participate in the screening: Yes Do you worry about a steady place to live?: No Do you have any problems with any of the following?: No known problems In the past 12 months,have you had to go without utilities?: No Transportation Issues: No Has anyone in your support network made you feel unsafe?: No Have you or anyone in your house had to go w/o enough food: No - Nursing Vital Signs Nursing Vital Signs: Initial Vital Signs Temperature 97.8 F 08/06/24 20:35 Pulse Rate 91 H 08/06/24 20:35 Respiratory Rate 18 08/06/24 20:35 Blood Pressure 120/95 08/06/24 20:35 O2 Sat by Pulse Oximetry 97 08/06/24 20:35 Pain Scale Pain Intensity 8 - Physical Exam General Appearance: no apparent distress Eye Exam: bilateral eye: normal inspection, PERRL, EOMI Nasal Exam: normal inspection Throat Exam: normal, pharynx normal, dental tenderness Neck Exam: normal inspection, non-tender, supple, full range of motion Cardiovascular/Respiratory Exam: normal breath sounds, regular rate/rhythm Abdominal Exam: non-tender (Gravid uterus) Neurologic Exam: alert, oriented x 3, cooperative, dispensary clerk II-XII nml as tested Skin Exam: normal color SpO2 Interpretation: normal SpO2: 97 O2 Delivery: Room Air Ordered Tests: Medication Summary Discontinued Medications Generic Name Dose Route Start Last Admin Trade Name Courtney PRN Reason Stop Dose Admin Hydrocodone Bitart/Acetaminophen 1 tab 08/06/24 20:52 Hydrocodone/Apap 5/325 1 Tab Tablet PO 08/06/24 20:53 STAT ONE Al Hydrox/Mg Hydrox/Simethicone 30 ml 08/06/24 20:52 Mag Hydrox/Al Hydrox/Simeth 30 Ml Udcup MM 08/06/24 20:53 STAT ONE Benzocaine/Butamben/Tetracaine HCl 5 spray 08/06/24 20:52 Tetracaine/Benzocaine/Butamben 1 [place] MM 08/06/24 20:53 ONCE ONE Lidocaine HCl 30 ml 08/06/24 20:52 Lidocaine Hcl 2% Viscous 15 Ml Udcup MM 08/06/24 20:53 STAT ONE - Progress Progress: improved, pain not gone completely Progress Note: 08/06/24 21:22 24-year-old female 1 para 0 at 32 weeks gestation presented to the ER with right lower jaw pain. Patient has history of broken teeth. Reports gradually increasing pain for the last couple of days. Has been taking Tylenol with no significant relief. Denies any fever or chills. No pelvic cramping, no vaginal bleeding discharge. Has tenderness swelling in the right lower molar area. No fluctuation. After informed consent about [place] patient is given 1 dose. Started on Augmentin and given dental balls. Recommended outpatient dental follow-up. Counseled pt/family regarding: diagnosis, need for follow-up Medical Desision Making - Independent Historian Additional History obtained from: Spouse - Diagnostic Testing Diagnostic test were ordered, analyzed, and reviewed by me: No - Risk of complications The pt has a mod risk of morbidity or mortality based on: Need for prescription drug management - Departure Departure Disposition: Home Clinical Impression: Dental infection, Condition: Stable Critical Care Time: No Referrals: REBA CAMACHO NP [Primary Care Provider] - Follow up with PCP 1 day Instructions: Tooth Abscess (DC) Additional Instructions: Take Tylenol as needed. Follow-up with your primary care and dentist for reevaluation. Return to ER for worsening pain swelling or if develop fever chills. Also return to ER for vaginal bleeding discharge, cramping etc. Prescriptions: Amox Tr/Potass Clav. 875 mg [Augmentin 875-125 Tablet] 875 mg PO BID #14 tablet
[2024-08-06 21:24] VITALS: O2SAT 97
[2024-08-06] MEDS ORDERED: MAALOX ES 30 ML UNIT DOSE ONE (21:24)
[2024-08-06] MEDS: XYLOCAINE VISCOUS 2% 15 ML CUP MM ONE (21:28)
[2024-08-06] MEDS: NORCO 5/325 MG PO ONE (21:28)
[2024-08-06] MEDS: MAALOX ES 30 ML UNIT DOSE MM ONE (21:29)
[2024-08-06] MEDS: CETACAINE SPRAY MM ONE (21:29)
== END 2024-08-06 21:45 | disposition home or self-care (01) ==
LOC: ED 19:50
DX: O98.813 Other maternal infectious and parasitic diseases complicating pregnancy, third trimester (principal); K04.7 Periapical abscess without sinus; Z3A.32 32 weeks gestation of pregnancy; R68.84 Jaw pain; Z79.899 Other long term (current) drug therapy
CPT/HCPCS: 99281; 99283; A9270-GY

== ENCOUNTER 2024-09-02 14:47 | Observation (INO) | payer OTHER ==
[2024-09-02 15:44] LABS: Absolute Neutrophil Ct (ANC) 13.06 x10^3/uL (1.56-6.13); BASOPHIL % 0.4 % (0.1-1.2); Basophil (Absolute #) 0.07 x10^3/uL (0.01-0.08); Eosinophil % 2.3 % (0.7-5.8); Eosinophil (Absolute #) 0.41 x10^3/uL (0.04-0.36); Hematocrit 37.1 % (34.1-44.9); IMMATURE GRAN # 0.16 x10^3u/L (0.001-0.031); IMMATURE GRAN % 0.9 % (0.001-0.429); Lymphocyte (Absolute #) 3.25 x10^3/uL (1.18-3.74); Lymphocytes % 18.1 % (19.3-51.7); Mean Cell Volume 86.7 fL (79.4-94.8); Mean Corpuscular Hgb Concent. 32.3 g/dL (32.2-35.5); Mean Platelet Volume 10.5 fL (9.4-12.3); Monocytes % 5.6 % (4.7-12.5); Neutrophil % 72.7 % (34.0-71.1); Platelet Count 295 x10^3/uL (182-369); Red Blood Count 4.28 x10^6/uL (3.93-5.22); Red Cell Distribution Width 14.3 % (11.7-14.4)
[2024-09-02 15:54] LABS: ALBUMIN 3.9 g/dL (3.5-5.0); ANION GAP 13.1 MEQ/L (5-15); BILIRUBIN,TOTAL 0.4 mg/dL (0.2-1.3); Calcium 9.1 mg/dL (8.4-10.2); Creatinine 1 0.54 mg/dL (0.52-1.04); Potassium 4.2 mmol/L (3.5-5.1); Total Protein 7.2 g/dL (6.3-8.2); Uric Acid 4.8 mg/dL (2.6-6.0)
[2024-09-02 16:08] LABS: Appearance Cloudy (Clear); Bilirubin Negative (Negative); Blood Negative (Negative); Glucose, Urine Negative (Negative); Ketones Trace (Negative); Leukocyte Esterase Small (Negative); Nitrite Negative (Negative); Protein,Urine Dip 30 (Negative); Specific Gravity 1.025 (1.005-1.030)
[2024-09-02 16:17] LABS: Mucus Moderate /HPF (NEGATIVE)
[2024-09-02 16:18] LABS: Bacteria Many /HPF (None Seen); Epithelial Cells Moderate /HPF (None Seen); RBC 0-2 /HPF (0-5)
[2024-09-02 16:18] LABS: Amphetamine,Urine NEGATIVE (NEGATIVE); Barbiturate,Urine NEGATIVE (NEGATIVE); Benzodiazepine,Urine NEGATIVE (NEGATIVE); Cocaine,Urine NEGATIVE (NEGATIVE); Methadone,Urine NEGATIVE (NEGATIVE); Opiate,Urine NEGATIVE (NEGATIVE); PCP,Urine NEGATIVE (NEGATIVE); THC,Urine POSITIVE (NEGATIVE)
[2024-09-02 16:20] LABS: Creatinine, Urine Random 286.6 mg/dl; Protein Creatinine Ratio, Ran. 0.02 mg/mg (0.0-0.15)
[2024-09-02 16:47] VITALS: PULSE 126; RESP 16; O2SAT 98
== END 2024-09-02 16:35 | disposition home or self-care (01) ==
LOC: OB.NST 14:47 → OB 15:22
PROVIDERS: ADMIT Obstetrics & Gynecology; ATTEND Obstetrics & Gynecology
DX: Z34.03 Encounter for supervision of normal first pregnancy, third trimester (principal); Z3A.35 35 weeks gestation of pregnancy
CPT/HCPCS: 36415; 59025; 80053; 80307; 81001; 82570; 83036; 83615; 84156; 84550; 85025; 87086; 99213; G0378

== ENCOUNTER 2024-09-24 20:24 | Observation (INO) | payer OTHER ==
[2024-09-24 20:57] LABS: BASOPHIL % 0.4 % (0.1-1.2); Basophil (Absolute #) 0.06 x10^3/uL (0.01-0.08); Eosinophil % 2.1 % (0.7-5.8); Eosinophil (Absolute #) 0.32 x10^3/uL (0.04-0.36); Hematocrit 32.8 % (34.1-44.9); Hemoglobin 10.8 g/dL (11.2-15.7); IMMATURE GRAN % 0.7 % (0.001-0.429); Lymphocyte (Absolute #) 3.34 x10^3/uL (1.18-3.74); Lymphocytes % 22.1 % (19.3-51.7); Mean Cell Volume 83.5 fL (79.4-94.8); Mean Corpuscular Hemoglobin 27.5 pg (25.6-32.2); Mean Corpuscular Hgb Concent. 32.9 g/dL (32.2-35.5); Mean Platelet Volume 10.8 fL (9.4-12.3); Monocyte (Absolute #) 1.02 x10^3/uL (0.24-0.86); Monocytes % 6.7 % (4.7-12.5); Platelet Count 289 x10^3/uL (182-369); Red Blood Count 3.93 x10^6/uL (3.93-5.22); Red Cell Distribution Width 14.3 % (11.7-14.4); White Blood Count 15.1 x10^3/uL (3.98-10.04)
[2024-09-24 21:11] LABS: ALBUMIN 3.6 g/dL (3.5-5.0); ANION GAP 13.5 MEQ/L (5-15); BILIRUBIN,TOTAL 0.3 mg/dL (0.2-1.3); Calcium 9.7 mg/dL (8.4-10.2); Creatinine 1 0.63 mg/dL (0.52-1.04); EST GLOMERULAR FILTRATION RATE 126.2 ML/MIN; Potassium 4.2 mmol/L (3.5-5.1); Total Protein 6.6 g/dL (6.3-8.2); Uric Acid 4.8 mg/dL (2.6-6.0)
[2024-09-24 21:12] VITALS: RESP 20
[2024-09-24 21:14] VITALS: PULSE 102; O2SAT 98
[2024-09-24 21:16] LABS: Appearance Cloudy (Clear); Bacteria Moderate /HPF (None Seen); Bilirubin Negative (Negative); Blood Negative (Negative); Epithelial Cells Few /HPF (None Seen); Glucose, Urine Negative (Negative); Hyaline Casts NONE SEEN /LPF (0-2); Ketones Negative (Negative); Leukocyte Esterase Small (Negative); Nitrite Negative (Negative); Ph 6.5 (4.6-8.0); Protein,Urine Dip Negative (Negative); RBC NONE SEEN /HPF (0-5); Specific Gravity 1.015 (1.005-1.030)
[2024-09-24 21:19] VITALS: BP 127/75; TEMP 97.4
[2024-09-24 21:23] LABS: Amphetamine,Urine NEGATIVE (NEGATIVE); Barbiturate,Urine NEGATIVE (NEGATIVE); Benzodiazepine,Urine NEGATIVE (NEGATIVE); Cocaine,Urine NEGATIVE (NEGATIVE); Creatinine, Urine Random 82.1 mg/dl; Methadone,Urine NEGATIVE (NEGATIVE); Opiate,Urine NEGATIVE (NEGATIVE); PCP,Urine NEGATIVE (NEGATIVE); Protein Creatinine Ratio, Ran. 0.16 mg/mg (0.0-0.15); THC,Urine NEGATIVE (NEGATIVE)
== END 2024-09-24 21:49 | disposition home or self-care (01) ==
LOC: UNDOADMOB 20:24 → OB 20:24 → MED SURG 20:24
PROVIDERS: ADMIT Obstetrics & Gynecology; ATTEND Obstetrics & Gynecology
DX: Z34.03 Encounter for supervision of normal first pregnancy, third trimester (principal); Z3A.38 38 weeks gestation of pregnancy
CPT/HCPCS: 36415; 80053; 80307; 81001; 82570; 83615; 84156; 84550; 85025; 87086

== ENCOUNTER 2024-09-27 07:30 | Inpatient (IN) | payer OTHER ==
[2024-09-27] MEDS ORDERED: Zofran 4 MG/2 ML VIAL IV PRN (08:00)
[2024-09-27] MEDS ORDERED: Nubain 10 MG/ML IV PRN (08:00)
[2024-09-27 08:50] LABS: Absolute Neutrophil Ct (ANC) 8.44 x10^3/uL (1.56-6.13); BASOPHIL % 0.4 % (0.1-1.2); Basophil (Absolute #) 0.05 x10^3/uL (0.01-0.08); Eosinophil % 2.6 % (0.7-5.8); Eosinophil (Absolute #) 0.32 x10^3/uL (0.04-0.36); Hematocrit 31.7 % (34.1-44.9); Hemoglobin 10.3 g/dL (11.2-15.7); IMMATURE GRAN # 0.08 x10^3u/L (0.001-0.031); IMMATURE GRAN % 0.6 % (0.001-0.429); Lymphocyte (Absolute #) 2.73 x10^3/uL (1.18-3.74); Mean Cell Volume 83.2 fL (79.4-94.8); Mean Corpuscular Hgb Concent. 32.5 g/dL (32.2-35.5); Mean Platelet Volume 10.4 fL (9.4-12.3); Monocyte (Absolute #) 0.77 x10^3/uL (0.24-0.86); Monocytes % 6.2 % (4.7-12.5); Neutrophil % 68.2 % (34.0-71.1); Platelet Count 250 x10^3/uL (182-369); Red Blood Count 3.81 x10^6/uL (3.93-5.22); Red Cell Distribution Width 14.4 % (11.7-14.4); White Blood Count 12.4 x10^3/uL (3.98-10.04)
[2024-09-27 09:01] LABS: Appearance Cloudy (Clear); Bacteria Few /HPF (None Seen); Bilirubin Negative (Negative); Blood Negative (Negative); Epithelial Cells Rare /HPF (None Seen); Glucose, Urine Negative (Negative); Hyaline Casts NONE SEEN /LPF (0-2); Ketones Negative (Negative); Leukocyte Esterase Negative (Negative); Nitrite Negative (Negative); Protein,Urine Dip Negative (Negative); RBC 0-2 /HPF (0-5); Specific Gravity 1.015 (1.005-1.030)
[2024-09-27 09:08] LABS: Amphetamine,Urine NEGATIVE (NEGATIVE); Barbiturate,Urine NEGATIVE (NEGATIVE); Benzodiazepine,Urine NEGATIVE (NEGATIVE); Cocaine,Urine NEGATIVE (NEGATIVE); Methadone,Urine NEGATIVE (NEGATIVE); Opiate,Urine NEGATIVE (NEGATIVE); PCP,Urine NEGATIVE (NEGATIVE); THC,Urine NEGATIVE (NEGATIVE)
[2024-09-27 09:22] LABS: ABO TYPING O; Antibody Screen NEGATIVE (NEGATIVE); RH TYPING POSITIVE
[2024-09-27] MEDS: Nicoderm CQ 21 MG TOP SCH (11:58)
[2024-09-27] MEDS: TYLENOL EXTRA STRENGTH 500 MG PO PRN (15:57)
[2024-09-27] MEDS: STADOL 2 MG IV PRN (18:29)
[2024-09-28] MEDS ORDERED: Ephedrine Sulfate 50 MG/ML IV PRN (05:00)
[2024-09-28] MEDS: CYTOTEC PO ONE (05:35)
[2024-09-28] MEDS: Lactated Ringers 1,000 ML IV ONE (05:35)
[2024-09-28] MEDS: PITOCIN 30 UNITS/ LR 500 ML 30 UNITS/500 ML PLAST..BAG IV SCH (07:45)
[2024-09-28] MEDS: FENTANYL 2 MCG-BUPIV 0.125%-NS 250 ML Epidur 250 ML EPIDURAL SCH (07:49)
[2024-09-28] MEDS: Lactated Ringers 1,000 ML IV SCH (07:50)
[2024-09-28] MEDS ORDERED: BRETHINE 1 MG/ML SQ PRN (09:00)
[2024-09-28 10:17] LABS: Appearance Clear (Clear); Bacteria None Seen /HPF (None Seen); Bilirubin Negative (Negative); Blood Negative (Negative); Epithelial Cells None Seen /HPF (None Seen); Glucose, Urine Negative (Negative); Hyaline Casts NONE SEEN /LPF (0-2); Ketones Negative (Negative); Leukocyte Esterase Negative (Negative); Nitrite Negative (Negative); Ph 7.5 (4.6-8.0); Protein,Urine Dip Negative (Negative); RBC 0-2 /HPF (0-5); WBC 0-2 /HPF (0-5)
[2024-09-28] MEDS ORDERED: Dulcolax 10 MG SUPP PR PRN (16:20)
[2024-09-28] MEDS ORDERED: Anucort-HC SUPPOSITORY PR PRN (16:20)
[2024-09-28] MEDS ORDERED: TUCKS TP PRN (16:20)
[2024-09-28] MEDS ORDERED: Mylicon 80MG PO PRN (16:20)
[2024-09-28] MEDS ORDERED: Dermoplast Spray TP PRN (16:20)
[2024-09-28] MEDS ORDERED: Restoril 15 MG PO PRN (16:20)
[2024-09-28] MEDS ORDERED: Ambien 10 MG PO PRN (16:20)
[2024-09-28] MEDS ORDERED: CORTISONE 1% CREAM TP PRN (16:20)
[2024-09-28] MEDS ORDERED: MORPHINE SULFATE 2 MG INJ IV PRN (16:41)
[2024-09-28] MEDS ORDERED: Narcan 0.4 MG/ML IV PRN (16:41)
[2024-09-28] MEDS ORDERED: HOLD NARCOTIC ANALGESICS AND SEDATIVES X24 HR MC PRN (16:41)
[2024-09-28] MEDS ORDERED: Nubain 10 MG/ML IV PRN (16:41)
[2024-09-28] MEDS ORDERED: Zofran 4 MG/2 ML VIAL IV PRN (16:41)
[2024-09-28] MEDS ORDERED: DEMEROL 50 MG IV PRN ×2 (16:41)
[2024-09-28] MEDS: Reglan 10 MG/2 ML IV SCH (17:00)
[2024-09-28] MEDS: Pepcid 20 MG VIAL IV SCH (17:00)
[2024-09-28] MEDS ORDERED: Lactated Ringers 1,000 ML IV SCH (17:00)
[2024-09-28] MEDS: SOD CITRATE-CITRIC ACID SOLN PO SCH (17:00)
[2024-09-28 17:17] LABS: INR 0.87 (0.8-3.0); PROTIME 9.6 SECONDS (9.4-12.5); PTT 27.1 SECONDS (25.1-36.5)
[2024-09-28] MEDS: CEFAZOLIN 2 GM/100 ML NaCl 2 GM/100 ML IVPB IV SCH (17:18)
[2024-09-28] MEDS ORDERED: XYLOCAINE 2%/Epi 1:200000 20ML VIAL MPF ONE (17:52)
[2024-09-28] MEDS ORDERED: Pitocin 10 UNITS/ML ONE (17:55)
[2024-09-28] MEDS ORDERED: Lactated Ringers 1,000 ML IV ONE (17:56)
[2024-09-28] MEDS ORDERED: BENADRYL 50 MG/ML ONE (18:08)
[2024-09-28] MEDS ORDERED: Versed 2 MG/2 ML Injection ONE (18:17)
[2024-09-28] MEDS ORDERED: Astramorph-Pf 5 MG/10 ML ONE (18:19)
[2024-09-28] MEDS ORDERED: Marcaine 0.5%/Epinephrine 10 ML ONE (18:29)
[2024-09-28] MEDS: Dextrose 5%-Lr IV Solution 1000 ML 1,000 ML IV SCH (20:11)
[2024-09-28] MEDS: PERCOCET TABLET 5/325MG PO PRN (21:31)
[2024-09-28] MEDS: Docusate Sodium 100 MG PO SCH (21:31)
[2024-09-28] MEDS ORDERED: TYLENOL EXTRA STRENGTH 500 MG PO PRN (22:18)
[2024-09-28] MEDS: CLARITIN 10 MG PO PRN (22:53)
[2024-09-29] MEDS: CEFAZOLIN 1 GM/100 ML NACL IVPB 1 GM/100 ML IVPB IV SCH (00:30)
[2024-09-29] MEDS: MOTRIN 400 MG PO PRN (00:32)
[2024-09-29] MEDS: BENADRYL 50 MG/ML IV PRN (00:40)
[2024-09-29 05:04] LABS: Absolute Neutrophil Ct (ANC) 9.72 x10^3/uL (1.56-6.13); BASOPHIL % 0.4 % (0.1-1.2); Basophil (Absolute #) 0.05 x10^3/uL (0.01-0.08); Eosinophil % 1.1 % (0.7-5.8); Eosinophil (Absolute #) 0.15 x10^3/uL (0.04-0.36); Hematocrit 27.2 % (34.1-44.9); Hemoglobin 8.6 g/dL (11.2-15.7); IMMATURE GRAN # 0.06 x10^3u/L (0.001-0.031); IMMATURE GRAN % 0.4 % (0.001-0.429); Lymphocyte (Absolute #) 2.87 x10^3/uL (1.18-3.74); Lymphocytes % 20.8 % (19.3-51.7); Mean Cell Volume 86.3 fL (79.4-94.8); Mean Corpuscular Hemoglobin 27.3 pg (25.6-32.2); Mean Corpuscular Hgb Concent. 31.6 g/dL (32.2-35.5); Mean Platelet Volume 10.8 fL (9.4-12.3); Monocyte (Absolute #) 0.93 x10^3/uL (0.24-0.86); Monocytes % 6.7 % (4.7-12.5); Neutrophil % 70.6 % (34.0-71.1); Platelet Count 229 x10^3/uL (182-369); Red Blood Count 3.15 x10^6/uL (3.93-5.22); Red Cell Distribution Width 14.6 % (11.7-14.4); White Blood Count 13.8 x10^3/uL (3.98-10.04)
[2024-09-29 07:05] LABS: RPR Non Reactive (Non Reactive)
[2024-09-29] MEDS: Nubain 10 MG/ML IV PRN (08:12)
[2024-09-29] MEDS: FEOSOL 325 MG PO SCH (08:58)
[2024-09-29] MEDS ORDERED: FERREX 150 PO SCH (10:00)
--- NOTE | 2024-09-29 10:42 | PCM.NOTE ---
Date and Time: 09/29/24 1040 Subjective Assessment: POD 1 SP CSECTION PT RESTING IN BED AND DOING WELL WITHOUT COMPLAINTS VSS AFEBRILE ABD; SOFT INCISION C/D/INTACT UTERUS; FIRM LOCHIA; MILD HGB; 8.6 A/P SP CSECTION POD 1 SECONDARY TO ARREST DISORDER; POSTOP ANEMIA WILL ADD IRON SUPPLEMENTATION ANTICIPATE DISCHARGE TOMORROW Objective Data Vital Signs: Vital Signs - 24 hr Temp Pulse Resp BP BP BP Pulse Ox 09/29/24 09:00 94 L 09/29/24 08:00 97.8 F 96 H 17 108/67 98 09/29/24 06:50 98 09/29/24 06:00 97 09/29/24 04:56 98 09/29/24 03:50 98.0 F 82 20 103/59 99 09/29/24 03:00 96 09/29/24 02:00 98 09/29/24 01:00 98 09/29/24 00:00 96 09/28/24 23:00 97.8 F 103 H 20 110/69 97 09/28/24 22:00 67.8 F 110 H 20 120/65 96 09/28/24 21:00 98.3 F 98 H 20 114/65 99 09/28/24 20:36 98 09/28/24 20:30 96 H 20 113/61 98 09/28/24 20:15 98.4 F 90 18 105/59 99 09/28/24 20:00 97.8 F 93 H 18 120/70 99 09/28/24 19:50 98 09/28/24 17:31 97.7 F 92 H 18 107/68 99 09/28/24 17:15 90 18 99 09/28/24 17:00 92 H 18 99 09/28/24 16:45 92 H 18 115/78 99 09/28/24 16:30 84 18 115/71 100 09/28/24 16:15 79 18 119/58 99 09/28/24 16:00 90 18 111/73 100 09/28/24 15:45 92 H 18 106/72 99 09/28/24 15:30 80 18 106/67 98 09/28/24 15:15 91 H 18 107/68 99 09/28/24 15:00 97.7 F 83 18 107/68 99 09/28/24 14:45 18 99 04/28/25 14:30 86 18 94/55 98 09/28/24 14:15 18 98 09/28/24 14:00 93 H 16 90/56 96 09/28/24 13:45 90 18 94/55 96 09/28/24 13:30 89 18 110/72 97 09/28/24 13:15 109 H 20 117/74 97 09/28/24 13:00 102 H 20 112/81 97 09/28/24 12:45 87 20 118/78 96 09/28/24 12:30 87 20 128/82 96 09/28/24 12:15 87 20 128/82 96 09/28/24 12:00 87 20 118/79 96 09/28/24 11:45 89 20 116/71 97 09/28/24 11:30 86 20 112/80 98 09/28/24 11:15 98 H 20 107/64 97 09/28/24 11:00 94 H 20 105/67 105/67 96 09/28/24 10:45 94 H 16 105/67 Pain Assessment - Last Documented Pain Intensity [Lower] 7 Pain Intensity 6 Pain Scale Used 0-10 Pain Scale Intake and Output: Intake & Output 09/26/24 09/27/24 09/28/24 09/29/24 11:59 11:59 11:59 11:59 Intake Total 2875 3927 Output Total 4607 Balance 2875 -680 Weight 95.254 kg 95.254 kg Lab Results: Lab Results-Last 24 Hours 09/27/24 09/28/24 09/28/24 Range/Units 08:41 13:10 17:01 WBC (3.98-10.04) x10^3/uL RBC (3.93-5.22) x10^6/uL Hgb (11.2-15.7) g/dL Hct (34.1-44.9) % MCV (79.4-94.8) fL MCH (25.6-32.2) pg MCHC (32.2-35.5) g/dL RDW (11.7-14.4) % Plt Count (182-369) x10^3/uL MPV (9.4-12.3) fL Gran % (34.0-71.1) % Immature Gran % (Auto) (0.001-0.429) % Nucleat RBC Rel Count (0.00-0.2) % Eos # (Auto) (0.04-0.36) x10^3/uL Immature Gran # (Auto) (0.001-0.031) x10^3u/L Absolute Lymphs (auto) (1.18-3.74) x10^3/uL Absolute Monos (auto) (0.24-0.86) x10^3/uL Absolute Nucleated RBC (0.00-0.012) x10^3u/L Lymphocytes % (19.3-51.7) % Monocytes % (4.7-12.5) % Eosinophils % (0.7-5.8) % Basophils % (0.1-1.2) % Absolute Granulocytes (1.56-6.13) x10^3/uL Basophils # (0.01-0.08) x10^3/uL PT 9.6 (9.4-12.5) SECONDS INR 0.87 (0.8-3.0) APTT 27.1 (25.1-36.5) SECONDS POC Glucometer 77 (74 to 106) mg/dL RPR Non Reactive (Non Reactive) 09/29/24 Range/Units 04:15 WBC 13.8 H (3.98-10.04) x10^3/uL RBC 3.15 L (3.93-5.22) x10^6/uL Hgb 8.6 L (11.2-15.7) g/dL Hct 27.2 L (34.1-44.9) % MCV 86.3 (79.4-94.8) fL MCH 27.3 (25.6-32.2) pg MCHC 31.6 L (32.2-35.5) g/dL RDW 14.6 H (11.7-14.4) % Plt Count 229 (182-369) x10^3/uL MPV 10.8 (9.4-12.3) fL Gran % 70.6 (34.0-71.1) % Immature Gran % (Auto) 0.4 (0.001-0.429) % Nucleat RBC Rel Count 0.0 (0.00-0.2) % Eos # (Auto) 0.15 (0.04-0.36) x10^3/uL Immature Gran # (Auto) 0.06 H (0.001-0.031) x10^3u/L Absolute Lymphs (auto) 2.87 (1.18-3.74) x10^3/uL Absolute Monos (auto) 0.93 H (0.24-0.86) x10^3/uL Absolute Nucleated RBC 0.00 (0.00-0.012) x10^3u/L Lymphocytes % 20.8 (19.3-51.7) % Monocytes % 6.7 (4.7-12.5) % Eosinophils % 1.1 (0.7-5.8) % Basophils % 0.4 (0.1-1.2) % Absolute Granulocytes 9.72 H (1.56-6.13) x10^3/uL Basophils # 0.05 (0.01-0.08) x10^3/uL PT (9.4-12.5) SECONDS INR (0.8-3.0) APTT (25.1-36.5) SECONDS POC Glucometer (74 to 106) mg/dL RPR (Non Reactive) Medications: Medications Generic Name Dose Route Start Last Admin Trade Name Freq PRN Reason Stop Dose Admin Acetaminophen 500 - 1,000 mg 09/28/24 22:18 Acetaminophen 500 Mg Tablet PO 10/28/24 22:17 Q4H PRN PRN MILD PAIN Hydrocodone Bitart/Acetaminophen 1 tab 09/28/24 16:20 Hydrocodone/Apap 5/325 1 Tab Tablet PO 10/03/24 16:19 Q4H PRN PRN SEVERE PAIN Benzocaine 1 gm 09/28/24 16:20 Benzocaine/Lanolin/Aloe Vera 85 Gm Can TP 10/28/24 16:19 UD PRN asneeded Bisacodyl 10 mg 09/28/24 16:20 Bisacodyl 10 Mg Supp.Rect MI 10/28/24 16:19 PRN PRN CONSTIPATION Diphenhydramine HCl 12.5 - 25 mg 09/28/24 16:41 09/29/24 06:23 Diphenhydramine Hcl 50 Mg/Ml Vial IV 09/29/24 16:40 25 mg Q6H PRN PRN Administration ITCHING Docusate Sodium 100 mg 09/28/24 22:00 09/29/24 08:58 Docusate Sodium 100 Mg Capsule PO 10/28/24 21:59 100 mg BID SUSHILA Administration Ferrous Sulfate 325 mg 09/29/24 10:00 09/29/24 08:58 Ferrous Sulfate 325 Mg Tablet PO 10/29/24 09:59 325 mg TID SUSHILA Administration Hydrocortisone 0.5 gm 09/28/24 16:20 Hydrocortisone 1% Cream 28 Gm Tube TP 10/28/24 16:19 PRN PRN ITCHING Hydrocortisone Acetate 25 mg 09/28/24 16:20 Hydrocortisone Acetate 25 Mg Supp.Rect MI 10/28/24 16:19 PRN PRN HEMORRHOIDS Dextrose/Lactated Ringer's 1,000 mls @ 125 mls/hr 09/28/24 17:00 09/28/24 20:11 Dextrose 5%-Lr Iv Solution 1000 Ml IV 10/28/24 16:59 125 mls/hr .Q8H SUSHILA Administration Cefazolin Sodium 1 gm in 100 mls @ 200 mls/hr 09/29/24 01:00 09/29/24 08:12 Cefazolin 1 Gm/100 Ml Nacl Ivpb IV 10/29/24 00:59 200 mls/hr Q8HT SUSHILA Administration Ibuprofen 800 mg 09/28/24 16:20 09/29/24 00:32 Ibuprofen 400 Mg Tablet PO 10/28/24 16:19 800 mg Q6H PRN PRN Administration MODERATE PAIN Loratadine 10 mg 09/28/24 16:41 09/28/24 22:53 Loratadine 10 Mg Tablet PO 09/29/24 16:40 10 mg QDP PRN Administration ITCHING Meperidine HCl 50 mg 09/28/24 16:41 Meperidine Hcl 50 Mg/Ml Carp IV 10/03/24 16:40 Q4H PRN PRN PAIN Meperidine HCl 12.5 mg 09/28/24 16:41 Meperidine Hcl 50 Mg/Ml Carp IV 09/29/24 16:40 PRN PRN SHAKING/TREMORS Morphine Sulfate 2 mg 09/28/24 16:41 Morphine Sulfate 2 Mg/Ml Inj IV 09/29/24 16:40 .Q30MIN PRN PRN SEVERE PAIN Nalbuphine HCl 5 mg 09/29/24 07:53 09/29/24 08:12 Nalbuphine Hcl 10 Mg/Ml Ampul IV 10/29/24 07:52 5 mg Q6H PRN PRN Administration ITCHING Naloxone HCl 0.1 mg 09/28/24 16:41 Naloxone Hcl 0.4 Mg/Ml Ml IV 09/29/24 16:40 PRN PRN as needed Nicotine 21 mg 09/27/24 11:45 09/28/24 15:54 Nicotine 21 Mg/Patch Patch TOP 10/27/24 11:44 21 mg Q24H SUSHILA Administration Non-Formulary Medication 1 each 09/28/24 16:41 Hold Narcotic Analgesics/Sedatives 1 Each Each 09/29/24 16:40 PRN PRN as needed Ondansetron HCl 4 mg 09/27/24 08:00 Ondansetron Hcl 4 Mg/2 Ml Vial IV 10/27/24 07:59 Q4H PRN PRN NAUSEA/VOMITING Ondansetron HCl 4 mg 09/28/24 16:41 Ondansetron Hcl 4 Mg/2 Ml Vial IV 09/29/24 16:40 PRN PRN NAUSEA Oxycodone/Acetaminophen 1 - 2 tab 09/28/24 16:41 09/29/24 09:56 Oxycodone Hcl/Apap 5 Mg/325 Mg Tablet PO 09/29/24 16:40 1 tab Q4H PRN PRN Administration MODERATE PAIN Simethicone 80 mg 09/28/24 16:20 Simethicone 80 Mg Tab.Chew PO 10/28/24 16:19 QID PRN PRN INDIGESTION Temazepam 15 - 30 mg 09/28/24 16:20 Temazepam 15 Mg Capsule PO 10/28/24 16:19 HS PRN PRN INSOMNIA Witch Barb 1 pad 09/28/24 16:20 Witch Barb 1 Pad Med..Pad TP 10/28/24 16:19 PRN PRN ITCHING Zolpidem Tartrate 10 mg 09/28/24 16:20 Zolpidem Tartrate 10 Mg Tablet PO 10/28/24 16:19 HS PRN PRN INSOMNIA Discontinued Medications Generic Name Dose Route Start Last Admin Trade Name Freq PRN Reason Stop Dose Admin Acetaminophen 1,000 mg 09/27/24 08:00 09/28/24 04:09 Acetaminophen 500 Mg Tablet PO 10/27/24 07:59 1,000 mg Q4H PRN PRN Administration HEADACHE/MILD PAIN/ FEVER Bupivacaine HCl/Epinephrine Bitart Confirm 09/28/24 18:29 Bupivacaine Hcl/Epinephrine 10 Ml Vial Administered 09/28/24 18:30 Dose 40 ml .ROUTE .STK-MED ONE Butorphanol Tartrate 1 mg 09/27/24 08:00 09/28/24 02:33 Butorphanol Tartrate 2 Mg/Ml Vial IV 10/27/24 07:59 1 mg Q4H PRN PRN Administration MODERATE PAIN Citric Acid/Sodium Citrate 30 ml 09/28/24 16:45 09/28/24 17:00 Citric Acid/Sodium Citrate 30 Ml Solution PO 09/28/24 20:44 30 ml 1HRPRIOR SUSHILA Administration Diphenhydramine HCl Confirm 09/28/24 18:08 Diphenhydramine Hcl 50 Mg/Ml Vial Administered 09/28/24 18:09 Dose 50 mg .ROUTE .STK-MED ONE Enoxaparin Sodium 40 mg 09/29/24 10:00 Enoxaparin Sodium 40 Mg/0.4 Ml Syringe SQ 09/29/24 10:01 1XONLY ONE Ephedrine Sulfate 10 mg 09/28/24 05:00 Ephedrine Sulfate 50 Mg/Ml IV 10/28/24 04:59 PRN PRN SBP<100 Famotidine 20 mg 09/28/24 16:45 09/28/24 17:00 Famotidine 20 Mg/1 Vial IV 09/28/24 20:43 20 mg 1HRPRIOR SUSHILA Administration Oxytocin/Lactated Ringer's 30 units in 500 mls @ 0 mls/hr 09/28/24 09:00 09/28/24 07:45 Pitocin 30 Units/ Lr 500 Ml IV 10/28/24 08:59 2 mls/hr .Q0M SUSHILA Administration Protocol Titrate Lactated Ringer's 1,000 mls @ 125 mls/hr 09/28/24 09:00 09/28/24 17:55 Lactated Ringers IV 10/28/24 08:59 125 mls/hr .Q8H SUSHILA Administration Lactated Ringer's 1,000 mls @ 999 mls/hr 09/28/24 05:00 09/28/24 05:35 Lactated Ringers IV 09/28/24 06:00 999 mls/hr .Q1H1M ONE Administration FENTANYL/BUPIVACAINE/NS/PF 250 mls @ 0 mls/hr 09/28/24 05:00 09/28/24 07:49 Fentanyl 2 Mcg-Bupiv 0.125%-Ns 250 Ml Epidur EPIDURAL 10/28/24 04:59 10 mls/hr .Q0M SUSHILA Administration Protocol Titrate Lactated Ringer's 1,000 mls @ 999 mls/hr 09/28/24 17:00 Lactated Ringers IV 09/28/24 18:59 .Q1H1M SUSHILA Cefazolin Sodium 2 gm in 100 mls @ 200 mls/hr 09/28/24 16:45 09/28/24 17:18 Cefazolin 2 Gm/100 Ml Nacl IV 09/28/24 17:14 200 mls/hr ONCALLTOOR SUSHILA Administration Lactated Ringer's Confirm 09/28/24 17:56 Lactated Ringers Administered 09/28/24 17:57 Dose 1,000 mls @ ud IV .STK-MED ONE Lidocaine/Epinephrine Confirm 09/28/24 17:52 Lidocaine Hcl/Epinephrine 2% 20 Ml Vial Mpf Administered 09/28/24 17:53 Dose 20 ml .ROUTE .STK-MED ONE Metoclopramide HCl 10 mg 09/28/24 16:45 09/28/24 17:00 Metoclopramide Hcl 10 Mg/2 Ml Vial IV 09/28/24 20:43 10 mg 1HRPRIOR SUSHILA Administration Midazolam HCl Confirm 09/28/24 18:17 Midazolam Hcl 2 Mg/2 Ml Vial Administered 09/28/24 18:18 Dose 2 mg .ROUTE .STK-MED ONE Misoprostol 25 mcg 09/27/24 09:00 09/28/24 01:14 Misoprostol 25 Mcg ("06/06") Tab INTRAVAGIN 10/27/24 08:59 25 mcg Q4H PRN SUSHILA Administration Misoprostol 20 mcg 09/28/24 05:30 09/28/24 05:35 Misoprostol 100 Mcg Tablet PO 09/28/24 05:31 20 mcg ONCE ONE Administration Morphine Sulfate Confirm 09/28/24 18:19 Morphine Sulfate 5 Mg/10 Ml Pf Ampul Administered 09/28/24 18:20 Dose 5 mg .ROUTE .STK-MED ONE Nalbuphine HCl 5 - 10 mg 09/27/24 08:00 Nalbuphine Hcl 10 Mg/Ml Ampul IV 10/27/24 07:59 Q4H PRN PRN PAIN Nalbuphine HCl 5 mg 09/28/24 16:41 Nalbuphine Hcl 10 Mg/Ml Ampul IV 09/29/24 16:40 Q6H PRN PRN ITCHING Oxytocin Confirm 09/28/24 17:55 Oxytocin 10 Units/Ml 10 Units/Ml Vial Administered 09/28/24 17:56 Dose 20 units .ROUTE .STK-MED ONE Polysaccharide Iron Complex 150 mg 09/29/24 10:00 Iron Polysaccharides Complex 150 Mg Capsule PO 10/29/24 09:59 DAILY SUSHILA Terbutaline Sulfate 0.25 mg 09/28/24 09:00 Terbutaline Sulfate 1 Mg/Ml Vial SQ 10/28/24 08:59 PRN PRN FOR HYPERSTIMULATION Multi-Disciplinary Progress Notes: Multi-Disciplinary Progress Notes 09/28/24 18:36 Respiratory Note by Cindy Arevalo PRESENT DURING THE DELIVERY. NO PROBLEMS NOTED. Initialized on 09/28/24 18:36 - END OF NOTE Assessment/Plan (1) Arrest of descent, delivered, current hospitalization Current Visit: Yes Status: Acute Code(s): O62.1 - SECONDARY UTERINE INERTIA (2) Arrest of dilation, delivered, current hospitalization Current Visit: Yes Status: Acute Code(s): O62.1 - SECONDARY UTERINE INERTIA (3) Postoperative anemia due to acute blood loss Current Visit: Yes Status: Acute Code(s): D62 - ACUTE POSTHEMORRHAGIC ANEMIA
[2024-09-29] MEDS: TORAdol 30 mg Injection IV PRN (13:14)
[2024-09-29] MEDS: NORCO 5/325 MG PO PRN (18:36)
[2024-09-29] MEDS: ENOXAPARIN SODIUM SQ ONE (21:43)
--- NOTE | 2024-09-30 07:51 | PCM.NOTE ---
Date and Time: 09/30/24 0750 Subjective Assessment: pod 2 sp csection pt resting in bed and doing well. able to ambulate and tolerate diet vss afebrile abd; soft incision c/d/intact uterus; firm lochia; mild a/p sp csection pod 2 dc home today should fu in office in 1 wk Objective Data Vital Signs: Vital Signs - 24 hr Temp Pulse Resp BP Pulse Ox 09/30/24 02:00 98.1 F 107 H 20 108/72 97 09/29/24 20:00 98.0 F 110 H 20 113/72 97 09/29/24 16:00 97.2 F 97 H 16 111/60 98 09/29/24 12:00 98.7 F 100 H 16 103/62 100 09/29/24 09:00 94 L 09/29/24 08:00 97.8 F 96 H 17 108/67 98 Pain Assessment - Last Documented Pain Intensity [Lower] 4 Pain Intensity 7 Pain Scale Used 0-10 Pain Scale Intake and Output: Intake & Output 09/27/24 09/28/24 09/29/24 09/30/24 11:59 11:59 11:59 11:59 Intake Total 2875 3927 1979 Output Total 4607 Balance 2875 -680 1979 Weight 95.254 kg 95.254 kg Medications: Medications Generic Name Dose Route Start Last Admin Trade Name Freq PRN Reason Stop Dose Admin Acetaminophen 500 - 1,000 mg 09/28/24 22:18 Acetaminophen 500 Mg Tablet PO 10/28/24 22:17 Q4H PRN PRN MILD PAIN Hydrocodone Bitart/Acetaminophen 1 tab 09/28/24 16:20 09/30/24 07:49 Hydrocodone/Apap 5/325 1 Tab Tablet PO 10/03/24 16:19 1 tab Q4H PRN PRN Administration SEVERE PAIN Benzocaine 1 gm 09/28/24 16:20 Benzocaine/Lanolin/Aloe Vera 85 Gm Can TP 10/28/24 16:19 UD PRN asneeded Bisacodyl 10 mg 09/28/24 16:20 Bisacodyl 10 Mg Supp.Rect MT 10/28/24 16:19 PRN PRN CONSTIPATION Docusate Sodium 100 mg 09/28/24 22:00 09/29/24 21:33 Docusate Sodium 100 Mg Capsule PO 10/28/24 21:59 100 mg BID SUSHILA Administration Ferrous Sulfate 325 mg 09/29/24 10:00 09/29/24 21:33 Ferrous Sulfate 325 Mg Tablet PO 10/29/24 09:59 325 mg TID SUSHILA Administration Hydrocortisone 0.5 gm 09/28/24 16:20 Hydrocortisone 1% Cream 28 Gm Tube TP 10/28/24 16:19 PRN PRN ITCHING Hydrocortisone Acetate 25 mg 09/28/24 16:20 Hydrocortisone Acetate 25 Mg Supp.Rect MT 10/28/24 16:19 PRN PRN HEMORRHOIDS Ibuprofen 800 mg 09/28/24 16:20 09/29/24 12:49 Ibuprofen 400 Mg Tablet PO 10/28/24 16:19 800 mg Q6H PRN PRN Administration MODERATE PAIN Ketorolac Tromethamine 30 mg 09/29/24 12:57 09/30/24 07:49 Ketorolac Tromethamine 30 Mg/Ml Inj IV 10/01/24 12:56 30 mg Q6H PRN PRN Administration PAIN Nalbuphine HCl 5 mg 09/29/24 07:53 09/29/24 08:12 Nalbuphine Hcl 10 Mg/Ml Ampul IV 10/29/24 07:52 5 mg Q6H PRN PRN Administration ITCHING Nicotine 21 mg 09/27/24 11:45 09/29/24 12:01 Nicotine 21 Mg/Patch Patch TOP 10/27/24 11:44 21 mg Q24H SUSHILA Administration Ondansetron HCl 4 mg 09/27/24 08:00 Ondansetron Hcl 4 Mg/2 Ml Vial IV 10/27/24 07:59 Q4H PRN PRN NAUSEA/VOMITING Simethicone 80 mg 09/28/24 16:20 Simethicone 80 Mg Tab.Chew PO 10/28/24 16:19 QID PRN PRN INDIGESTION Temazepam 15 - 30 mg 09/28/24 16:20 Temazepam 15 Mg Capsule PO 10/28/24 16:19 HS PRN PRN INSOMNIA Witch Barb 1 pad 09/28/24 16:20 Witch Barb 1 Pad Med..Pad TP 10/28/24 16:19 PRN PRN ITCHING Zolpidem Tartrate 10 mg 09/28/24 16:20 Zolpidem Tartrate 10 Mg Tablet PO 10/28/24 16:19 HS PRN PRN INSOMNIA Discontinued Medications Generic Name Dose Route Start Last Admin Trade Name Carlos Albertoq PRN Reason Stop Dose Admin Acetaminophen 1,000 mg 09/27/24 08:00 09/28/24 04:09 Acetaminophen 500 Mg Tablet PO 10/27/24 07:59 1,000 mg Q4H PRN PRN Administration HEADACHE/MILD PAIN/ FEVER Bupivacaine HCl/Epinephrine Bitart Confirm 09/28/24 18:29 Bupivacaine Hcl/Epinephrine 10 Ml Vial Administered 09/28/24 18:30 Dose 40 ml .ROUTE .STK-MED ONE Butorphanol Tartrate 1 mg 09/27/24 08:00 09/28/24 02:33 Butorphanol Tartrate 2 Mg/Ml Vial IV 10/27/24 07:59 1 mg Q4H PRN PRN Administration MODERATE PAIN Citric Acid/Sodium Citrate 30 ml 09/28/24 16:45 09/28/24 17:00 Citric Acid/Sodium Citrate 30 Ml Solution PO 09/28/24 20:44 30 ml 1HRPRIOR SUSHILA Administration Diphenhydramine HCl 12.5 - 25 mg 09/28/24 16:41 09/29/24 14:47 Diphenhydramine Hcl 50 Mg/Ml Vial IV 09/29/24 16:40 12.5 mg Q6H PRN PRN Administration ITCHING Diphenhydramine HCl Confirm 09/28/24 18:08 Diphenhydramine Hcl 50 Mg/Ml Vial Administered 09/28/24 18:09 Dose 50 mg .ROUTE .STK-MED ONE Enoxaparin Sodium 40 mg 09/29/24 10:00 09/29/24 21:43 Enoxaparin Sodium 40 Mg/0.4 Ml Syringe SQ 09/29/24 10:01 40 mg 1XONLY ONE Administration Ephedrine Sulfate 10 mg 09/28/24 05:00 Ephedrine Sulfate 50 Mg/Ml IV 10/28/24 04:59 PRN PRN SBP<100 Famotidine 20 mg 09/28/24 16:45 09/28/24 17:00 Famotidine 20 Mg/1 Vial IV 09/28/24 20:43 20 mg 1HRPRIOR SUSHILA Administration Oxytocin/Lactated Ringer's 30 units in 500 mls @ 0 mls/hr 09/28/24 09:00 09/28/24 07:45 Pitocin 30 Units/ Lr 500 Ml IV 10/28/24 08:59 2 mls/hr .Q0M SUSHILA Administration Protocol Titrate Lactated Ringer's 1,000 mls @ 125 mls/hr 09/28/24 09:00 09/28/24 17:55 Lactated Ringers IV 10/28/24 08:59 125 mls/hr .Q8H SUSHILA Administration Lactated Ringer's 1,000 mls @ 999 mls/hr 09/28/24 05:00 09/28/24 05:35 Lactated Ringers IV 09/28/24 06:00 999 mls/hr .Q1H1M ONE Administration FENTANYL/BUPIVACAINE/NS/PF 250 mls @ 0 mls/hr 09/28/24 05:00 09/28/24 07:49 Fentanyl 2 Mcg-Bupiv 0.125%-Ns 250 Ml Epidur EPIDURAL 10/28/24 04:59 10 mls/hr .Q0M SUSHILA Administration Protocol Titrate Dextrose/Lactated Ringer's 1,000 mls @ 125 mls/hr 09/28/24 17:00 09/28/24 20 :11 Dextrose 5%-Lr Iv Solution 1000 Ml IV 10/28/24 16:59 125 mls/hr .Q8H SUSHILA Administration Lactated Ringer's 1,000 mls @ 999 mls/hr 09/28/24 17:00 Lactated Ringers IV 09/28/24 18:59 .Q1H1M SUSHILA Cefazolin Sodium 2 gm in 100 mls @ 200 mls/hr 09/28/24 16:45 09/28/24 17:18 Cefazolin 2 Gm/100 Ml Nacl IV 09/28/24 17:14 200 mls/hr ONCALLTOOR SUSHILA Administration Lactated Ringer's Confirm 09/28/24 17:56 Lactated Ringers Administered 09/28/24 17:57 Dose 1,000 mls @ ud IV .STK-MED ONE Cefazolin Sodium 1 gm in 100 mls @ 200 mls/hr 09/29/24 01:00 09/29/24 08:12 Cefazolin 1 Gm/100 Ml Nacl Ivpb IV 10/29/24 00:59 200 mls/hr Q8HT SUSHILA Administration Lidocaine/Epinephrine Confirm 09/28/24 17:52 Lidocaine Hcl/Epinephrine 2% 20 Ml Vial Mpf Administered 09/28/24 17:53 Dose 20 ml .ROUTE .STK-MED ONE Loratadine 10 mg 09/28/24 16:41 09/28/24 22:53 Loratadine 10 Mg Tablet PO 09/29/24 16:40 10 mg QDP PRN Administration ITCHING Meperidine HCl 50 mg 09/28/24 16:41 Meperidine Hcl 50 Mg/Ml Carp IV 10/03/24 16:40 Q4H PRN PRN PAIN Meperidine HCl 12.5 mg 09/28/24 16:41 Meperidine Hcl 50 Mg/Ml Carp IV 09/29/24 16:40 PRN PRN SHAKING/TREMORS Metoclopramide HCl 10 mg 09/28/24 16:45 09/28/24 17:00 Metoclopramide Hcl 10 Mg/2 Ml Vial IV 09/28/24 20:43 10 mg 1HRPRIOR SUSHILA Administration Midazolam HCl Confirm 09/28/24 18:17 Midazolam Hcl 2 Mg/2 Ml Vial Administered 09/28/24 18:18 Dose 2 mg .ROUTE .STK-MED ONE Misoprostol 25 mcg 09/27/24 09:00 09/28/24 01:14 Misoprostol 25 Mcg ("06/06") Tab INTRAVAGIN 10/27/24 08:59 25 mcg Q4H PRN SUSHILA Administration Misoprostol 20 mcg 09/28/24 05:30 09/28/24 05:35 Misoprostol 100 Mcg Tablet PO 09/28/24 05:31 20 mcg ONCE ONE Administration Morphine Sulfate 2 mg 09/28/24 16:41 Morphine Sulfate 2 Mg/Ml Inj IV 09/29/24 16:40 .Q30MIN PRN PRN SEVERE PAIN Morphine Sulfate Confirm 09/28/24 18:19 Morphine Sulfate 5 Mg/10 Ml Pf Ampul Administered 09/28/24 18:20 Dose 5 mg .ROUTE .STK-MED ONE Nalbuphine HCl 5 - 10 mg 09/27/24 08:00 Nalbuphine Hcl 10 Mg/Ml Ampul IV 10/27/24 07:59 Q4H PRN PRN PAIN Nalbuphine HCl 5 mg 09/28/24 16:41 Nalbuphine Hcl 10 Mg/Ml Ampul IV 09/29/24 16:40 Q6H PRN PRN ITCHING Naloxone HCl 0.1 mg 09/28/24 16:41 Naloxone Hcl 0.4 Mg/Ml Ml IV 09/29/24 16:40 PRN PRN as needed Non-Formulary Medication 1 each 09/28/24 16:41 Hold Narcotic Analgesics/Sedatives 1 Each Each 09/29/24 16:40 PRN PRN as needed Ondansetron HCl 4 mg 09/28/24 16:41 Ondansetron Hcl 4 Mg/2 Ml Vial IV 09/29/24 16:40 PRN PRN NAUSEA Oxycodone/Acetaminophen 1 - 2 tab 09/28/24 16:41 09/29/24 12:49 Oxycodone Hcl/Apap 5 Mg/325 Mg Tablet PO 09/29/24 16:40 1 tab Q4H PRN PRN Administration MODERATE PAIN Oxytocin Confirm 09/28/24 17:55 Oxytocin 10 Units/Ml 10 Units/Ml Vial Administered 09/28/24 17:56 Dose 20 units .ROUTE .STK-MED ONE Polysaccharide Iron Complex 150 mg 09/29/24 10:00 Iron Polysaccharides Complex 150 Mg Capsule PO 10/29/24 09:59 DAILY SUSHILA Terbutaline Sulfate 0.25 mg 09/28/24 09:00 Terbutaline Sulfate 1 Mg/Ml Vial SQ 10/28/24 08:59 PRN PRN FOR HYPERSTIMULATION Multi-Disciplinary Progress Notes: Multi-Disciplinary Progress Notes 09/29/24 10:30 (created 09/29/24 13:08) Case Management Note by Joann Zarate SOCIAL SERVICE CONSULT PRINTED TO UR- S/Arya OGLESBY- NAVIGATOR- SHE WILL SEE PATIENT IN HOUSE AND TAKE CARE OF REFERRAL. S/W TINY IN OB- SHE WAS NOTIFIED TO BE SURE RENY SEES PATIENT PRIOR TO DCING HER HOME. SHE VERIFIED UNDERSTANDING. Initialized on 09/29/24 13:08 - END OF NOTE Assessment/Plan (1) Arrest of descent, delivered, current hospitalization Current Visit: Yes Status: Acute Code(s): O62.1 - SECONDARY UTERINE INERTIA (2) Arrest of dilation, delivered, current hospitalization Current Visit: Yes Status: Acute Code(s): O62.1 - SECONDARY UTERINE INERTIA (3) Postoperative anemia due to acute blood loss Current Visit: Yes Status: Acute Code(s): D62 - ACUTE POSTHEMORRHAGIC ANEMIA
--- NOTE | 2024-09-30 07:58 | PCM.DS ---
Discharge Summary Date of Admission: 09/28/24 07:30 Admitting Physician: KANU SANDERS DO Consults: Consults on Case 09/28/24 16:42 Notify Anesthesia Provider PRN 09/29/24 09:00 Navigation ONCE Primary Care Provider: REBA CAMACHO Allergies Allergies codeine Allergy (Mild, Verified 09/24/24 21:03) Rash Hospital Summary - Hospital Course Hospital Course: pt admitted at 39 wks gestation on september 27 with cytotec induction and had 5 doses of vaginal cytotec with one oral dose with subsquent starting her on pitocin. pt had iupc in place with adequate uterine contx and for 5-6 hrs did not have any cervical change or descent. pt was then taken for primary csection and delivered live baby girl. during postop period did well and had a hgb level at 8.6 and started at 10 prior to csection. pt at this time able to ambulate and tolerate diet. will send percocet rx to hospital pharmacy 20 tabs. pt at this time stable for discharge with fu in 1 wk. all questions answered to her satisfaction. - Vitals & Intake/Output Vital Signs: Vital Signs Temperature 98.1 F 09/30/24 02:00 Pulse Rate 107 H 09/30/24 02:00 Respiratory Rate 20 09/30/24 02:00 Blood Pressure 108/72 09/30/24 02:00 O2 Sat by Pulse Oximetry 97 09/30/24 02:00 Intake & Output: Intake & Output 09/27/24 09/28/24 09/29/24 09/30/24 11:59 11:59 11:59 11:59 Intake Total 2875 3927 1979 Output Total 4607 Balance 2875 -680 1979 Weight 95.254 kg 95.254 kg - Lab Result Diagrams: 09/29/24 04:15 Micro Results-Entire Visit: Microbiology 09/28/24 10:09 Urine Culture - Preliminary Catherized NO GROWTH TO DATE - Procedures and Test Procedures and Tests throughout Hospitalization: Therapy Orders & Screens 09/28/24 18:36 Standby ROUTINE Comment: Diagnosis: IUP Final Diagnosis/Problem List - Final Discharge Diagnosis/Problem (1) Arrest of descent, delivered, current hospitalization Current Visit: Yes Status: Acute Code(s): O62.1 - SECONDARY UTERINE INERTIA (2) Arrest of dilation, delivered, current hospitalization Current Visit: Yes Status: Acute Code(s): O62.1 - SECONDARY UTERINE INERTIA (3) Postoperative anemia due to acute blood loss Current Visit: Yes Status: Acute Code(s): D62 - ACUTE POSTHEMORRHAGIC ANEMIA - Discharge Disposition: Home, Self-Care Condition: Stable Prescriptions: New Oxycodone HCl/Acetaminophen [Percocet 5-325 mg Tablet] 1 each PO Q6H PRN PRN #20 tablet MDD 4 PRN Reason: Moderate To Severe Pain No Action Vit No.179/Iron/Folic [ Tablet] 1 mg PO DAILY Follow up with: REBA CAMACHO NP [Primary Care Provider, FAMILY PRACTICE] KANU SANDERS DO [ACTIVE STAFF, OBSTETRICS-GYNECOLOGY] - 1 Week
[2024-09-30 08:10] LABS: Hematocrit 26.6 % (34.1-44.9); Hemoglobin 8.4 g/dL (11.2-15.7); Mean Corpuscular Hemoglobin 26.8 pg (25.6-32.2); Mean Corpuscular Hgb Concent. 31.6 g/dL (32.2-35.5); Mean Platelet Volume 10.2 fL (9.4-12.3); Platelet Count 236 x10^3/uL (182-369); Red Blood Count 3.13 x10^6/uL (3.93-5.22); Red Cell Distribution Width 14.6 % (11.7-14.4); White Blood Count 11.8 x10^3/uL (3.98-10.04)
--- NOTE | 2024-09-30 10:19 | OP ---
SURGERY DATE/TIME: 09/28/2024 [id number] PREOPERATIVE DIAGNOSIS: Intrauterine at 39 weeks and 2 days gestation with arrest of decent and dilatation. POSTOPERATIVE DIAGNOSIS: Intrauterine at 39 weeks and 2 days gestation with arrest of decent and dilatation. PROCEDURE: Primary section with low flap transverse uterine incision, Pfannenstiel skin incision. SURGEON: Sarkis Diaz DO LINEN MANAGER: Nicolasa ANESTHESIA: Epidural. ESTIMATED BLOOD LOSS: 707 mL. COMPLICATIONS: None. PROCEDURE AND FINDINGS: The risks, benefits, indications, and alternatives of the procedure were reviewed with the patient prior to the procedure. The patient understood the risks of infection, bleeding, bowel injury, bladder injury, ureteral injury, pelvic infection, thromboembolic disorder associated with the surgery, and desired to have the surgery as a possible means to alleviate her current medical condition. At this point, the patient was taken to the operating room where her epidural anesthesia was found to be adequate. She was then prepared and draped in normal sterile fashion in the dorsal supine position with leftward tilt. A Pfannenstiel skin incision was made with a scalpel and carried through to the underlying layer of the fascia with a Bovie. The fascia was then incised in the midline, the incision extended laterally with Fallon scissors. The superior aspect of the fascial incision was then grasped with Carol clamps, elevated, and the underlying rectus muscle dissected out bluntly. Attention was then turned to the inferior aspect of this incision which in a similar fashion was grasped, tented up with Carol clamps, and the rectus muscle dissected off bluntly. The rectus muscles were then in the midline. The peritoneum identified, tented up, and entered sharply with Metzenbaum scissors. The peritoneal incision was then extended superiorly and inferiorly with good visualization of the bladder. At this point, an Marlon retractor was placed into the incision. At this point, a uterine incision was then made transversely and extended laterally with bandage scissors. After incision, the baby's head was then delivered atraumatically, the nose and mouth were suctioned with bulb suction, cord clamped and cut. The was then handed off to waiting nurses. The placenta was then removed manually. The uterus exteriorized and cleared of all clots and debris. The uterine incision was repaired with 1 chromic in a running locked fashion. A second layer of the same suture was used to obtain excellent hemostasis. The uterus was returned to the abdomen. The gutters were cleared of all clots, and the peritoneum and muscles were closed in an interrupted fashion using 2-0 chromic suture. The fascia was reapproximated with 0 Vicryl in a running fashion, the subcutaneous layer was closed with 3-0 Vicryl suture, and the skin incision was closed with absorbable rosanna called Insorb. Sponge, lap, needle, and instrument counts were correct x2. The patient was then taken to the recovery room in stable condition. The patient delivered a live baby girl at 1824, Apgars 8 at one minute and 9 at five minutes.
[2024-09-30 22:30] VITALS: BP 119/76; PULSE 112; RESP 20; TEMP 97.8; O2SAT 97
== END 2024-09-30 20:30 | disposition home or self-care (01) | DRG 787 ==
LOC: OB 07:30 → OBSVTOIN 09-28 07:30
PROVIDERS: ADMIT Obstetrics & Gynecology; ATTEND Obstetrics & Gynecology
PROC: 10D00Z1 Extraction of Products of Conception, Low, Open Approach (ICD-10-PCS; principal; 2024-09-28)
DX: O62.1 Secondary uterine inertia (principal); D62 Acute posthemorrhagic anemia; O24.429 Gestational diabetes mellitus in childbirth, unspecified control; Z3A.39 39 weeks gestation of pregnancy; Z37.0 Single live birth
CPT/HCPCS: 36415; 59426; 59514; 62322; 64488; 76937; 80307; 81001; 81002; 82947; 85025; 85027; 85610; 85730; 86592; 86850; 86900; 86901; 87086; 94799; 99213; G0378; G0379; J0595; J0690; J1200; J1650; J1885; J2250; J2274; J2300; J2590; L0625; A9270-GY